=== PATIENT | male | born 1930 | race Caucasian/White ===

== ENCOUNTER → 2016-11-14 | Outpatient (REF) | payer MEDICARE | LOC: M LAB REF 16:23 | PROVIDERS: ATTEND Surgery | DX: J20.9 Acute bronchitis, unspecified (principal) ==

== ENCOUNTER 2017-01-28 10:13 | Emergency (ER) | payer MEDICARE ==
[~2017-01-28] VITALS: Ht 177.8 cm; Wt 79.5 kg
[2017-01-28] MEDS ORDERED: ZOCO80TA PO (10:27)
[2017-01-28] MEDS ORDERED: ASPI81TA85 PO (10:27)
[2017-01-28 11:50] LABS: MEAN CORPUSCULAR HEMOGLOBIN 31.1 pg (27.0-33.0); MEAN CORPUSCULAR HGB CONC 33.8 g/dl (32.0-36.5); MEAN CORPUSCULAR VOLUME 91.8 fl (80.0-96.0); RED CELL DISTRIBUTION WIDTH 13.5 % (11.5-14.5); WHITE BLOOD COUNT 16.2 K/mm3 (4.0-10.0)
[2017-01-28 11:58] LABS: INR 0.94
[2017-01-28 12:09] LABS: ANION GAP 6 MEQ/L (8-16); BLOOD UREA NITROGEN 14 MG/DL (7-18); CALCIUM LEVEL 9.3 MG/DL (8.8-10.2); CARBON DIOXIDE LEVEL 28 MEQ/L (21-32); CHLORIDE LEVEL 103 MEQ/L (98-107); CREATININE FOR GFR 1.06 MG/DL (0.70-1.30); GLOMERULAR FILTRATION RATE > 60.0 (>35); GLUCOSE, FASTING 98 MG/DL (83-110); SODIUM LEVEL 137 MEQ/L (136-145)
[2017-01-28] MEDS ORDERED: CIPR-249 PO (13:59)
[2017-01-28] MEDS ORDERED: CIPROFLOXACIN 500 MG TAB PO ONE (14:00)
[2017-01-28 14:05] VITALS: BP 134/71
[2017-01-28 16:54] LABS: BACTERIA, URINE NONE SEEN; HYALINE CAST, URINE NONE SEEN /lpf (0-1); MICROSCOPIC EXAM PERFORMED; MICROSCOPIC INDICATED? MAN YES (NO); RBC, URINE TNTC /hpf (0-3); SQUAMOUS EPITHELIAL CELL URINE NONE SEEN /hpf (SMALL AMT); WBC, URINE TNTC /hpf (0-3)
== END 2017-01-28 14:26 | disposition home or self-care (01) ==
LOC: M ED 10:13
DX: N39.0 Urinary tract infection, site not specified (principal); R31.9 Hematuria, unspecified; I10 Essential (primary) hypertension; E78.5 Hyperlipidemia, unspecified; Z79.899 Other long term (current) drug therapy; Z79.82 Long term (current) use of aspirin; Z87.891 Personal history of nicotine dependence

== ENCOUNTER → 2017-01-28 | Outpatient (REF) | payer MEDICARE ==
[~2017-01-28] MED LIST: ASPI81TA85 PO; CIPR-249 PO; ZOCO80TA PO
[2017-01-28 15:45] LABS: MICROSCOPIC INDICATED? MAN YES (NO)
[2017-01-28 16:02] LABS: BACTERIA, URINE SMALL AMOUNT; HYALINE CAST, URINE NONE SEEN /lpf (0-1); MICROSCOPIC EXAM PERFORMED; SQUAMOUS EPITHELIAL CELL URINE SMALL AMOUNT /hpf (SMALL AMT)
== END ==
LOC: M SMT 09:42
PROVIDERS: ATTEND Specialist
DX: R31.0 Gross hematuria (principal)

== ENCOUNTER 2019-11-22 08:45 | Inpatient (IN) | payer MEDICARE ==
[~2019-11-22] VITALS: Ht 177.8 cm; Wt 88.2 kg
[2019-11-22] VITALS (12 sets, daily range): BP systolic 75–140; BP diastolic 41–86
[2019-11-22] MEDS ORDERED: OMEG12003 PO (08:59)
[2019-11-22] MEDS ORDERED: ATOR40TA75 PO (08:59)
[2019-11-22] MEDS ORDERED: LISI-538 PO (08:59)
[2019-11-22] MEDS ORDERED: ALPR2TAB3 PO (08:59)
[2019-11-22] MEDS ORDERED: CARV6.25 PO (08:59)
[2019-11-22] MEDS ORDERED: prevagen (08:59)
[2019-11-22 09:19] LABS: BASO % 0.2 % (0.0-1.0); EOS % 0.1 % (0.0-3.0); HEMOGLOBIN 11.9 g/dl (13.5-17.5); LYMPH # 1.1 10^3/uL (1.5-5.0); MEAN CORPUSCULAR HEMOGLOBIN 30.4 pg (27.0-33.0); MEAN CORPUSCULAR HGB CONC 33.1 g/dl (32.0-36.5); MEAN CORPUSCULAR VOLUME 91.8 fl (80.0-96.0); MONO # 1.5 10^3/uL (0.0-0.8); MONO % 9.9 % (0.0-5.0); NEUTROPHILS # 12.2 10^3/uL (1.5-8.5); PLATELET COUNT, AUTOMATED 161 10^3/uL (150-450); RED BLOOD COUNT 3.92 10^6/uL (4.30-6.10); WHITE BLOOD COUNT 14.9 10^3/uL (4.0-10.0)
[2019-11-22 09:27] LABS: VENOUS BASE EXCESS -0.6 (-2.0-2.0); VENOUS HCO3 24.5 MEQ/L (23.0-27.0); VENOUS O2 SATURATION 69.7 % (60.0-80.0); VENOUS PARTIAL PRESSURE O2 37.5 mmHg (30.0-50.0); VENOUS PH 7.383 UNITS (7.330-7.430); VENOUS STANDARD HCO3 23.4 MEQ/L; VENOUS TOTAL CO2 25.7 MEQ/L (24.0-28.0)
[2019-11-22 09:54] LABS: ALBUMIN 3.2 GM/DL (3.2-5.2); BILIRUBIN,DIRECT 0.3 MG/DL (0.0-0.2); BILIRUBIN,TOTAL 0.9 MG/DL (0.2-1.0); CK-MB VALUE MASS 1.4 NG/ML (<3.6); THYROID STIMULATING HORMONE 1.27 uIU/ML (0.358-3.740); TOTAL PROTEIN 6.5 GM/DL (6.4-8.2); TROPONIN I 0.09 NG/ML (< 0.10)
--- NOTE | 2019-11-22 09:57 | REP ---
CT BRAIN WITHOUT CONTRAST: HISTORY: Altered mental status. No comparison study. 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 Bone window settings demonstrate an intact bony calvarium. There is some vascular calcification in the distal internal carotid arteries bilaterally and in the distal vertebral arteries. No intraorbital abnormality is seen. Visualized paranasal sinuses are clear. On soft tissue window settings, there is mild generalized volume loss. There are mild atherosclerotic changes in the periventricular white matter bilaterally. There is no evidence of acute infarction or hemorrhage. No mass or extra-axial fluid collection is seen. IMPRESSION: Vascular calcification, generalized volume loss, small vessel changes. No acute intracranial lesion seen. Electronically Signed by Jostin Zamarripa MD 11/22/2019 12:21 P
--- NOTE | 2019-11-22 09:58 | REP ---
PORTABLE CHEST X-RAY: Sitting AP view. HISTORY: Altered mental status. No comparison study. FINDINGS: The lungs are exposed at a relatively low level of inspiration. No focal infiltrate is apparent. The pleural angles are sharp. Thoracic aorta somewhat tortuous and calcific. Heart is not felt to be enlarged. No acute bony abnormality is seen. IMPRESSION: Relatively low level of inspiration. Otherwise no acute disease. Electronically Signed by Jostin Zamarripa MD 11/22/2019 12:21 P
[2019-11-22] MEDS ORDERED: OMEG10002 PO (10:36)
[2019-11-22] MEDS ORDERED: ALPR0.5T3 PO (10:36)
[2019-11-22] MEDS ORDERED: CYAN100049 PO (10:36)
[2019-11-22] MEDS ORDERED: IBUP200C29 PO (10:36)
[2019-11-22] MEDS ORDERED: NORT50CA PO (10:36)
[2019-11-22] MEDS ORDERED: VITAD1000T PO (10:36)
[2019-11-22] MEDS ORDERED: VITMTA PO (10:36)
[2019-11-22] MEDS ORDERED: VITA50TA7 PO (10:36)
[2019-11-22] MEDS ORDERED: ALPRAZolam 0.5 MG TAB PO PRN (14:15)
[2019-11-22] MEDS ORDERED: NS 1,000 ML IV ONE ×2 (14:30→18:30)
[2019-11-22] MEDS ORDERED: ACETAMINOPHEN 650 MG SUPP PR ONE (14:30)
[2019-11-22] MEDS ORDERED: ASPIRIN 325 MG TAB PO ONE (14:30)
[2019-11-22] MEDS ORDERED: NS 1,000 ML IV SCH (14:30)
[2019-11-22] MEDS ORDERED: NITROGLYCERIN 0.3 MG SUBL TAB SL PRN (14:30)
[2019-11-22] MEDS ORDERED: ACETAMINOPHEN 650 MG SUPP As Ordered ONE (14:32)
[2019-11-22] MEDS ORDERED: cefTRIAXone SOD 1 GM in D5W MINI-BAG PLUS 50 ML IV SCH (15:00)
[2019-11-22] MEDS ORDERED: ONDANSETRON 4MG/2ML VIAL IV PRN ×2 (15:15→19:45)
[2019-11-22] MEDS ORDERED: HEPARIN SOD (PORCINE) 5000UNITS/ML VIAL (J1644 PER 1000UNITS) IV STA ×2 (15:17→16:09)
[2019-11-22] MEDS ORDERED: HEPARIN DRIP 25,000 UNITS in IV 1 EA IV SCH ×4 (15:18→16:12)
[2019-11-22 15:19] LABS: HEMATOCRIT 36.2 % (42.0-52.0); HEMOGLOBIN 12.1 g/dl (13.5-17.5); MEAN CORPUSCULAR HEMOGLOBIN 30.3 pg (27.0-33.0); MEAN CORPUSCULAR HGB CONC 33.4 g/dl (32.0-36.5); MEAN CORPUSCULAR VOLUME 90.5 fl (80.0-96.0); PLATELET COUNT, AUTOMATED 159 10^3/uL (150-450); WHITE BLOOD COUNT 7.1 10^3/uL (4.0-10.0)
[2019-11-22] MEDS ORDERED: HEPARIN SOD (PORCINE) 5000UNITS/ML VIAL (J1644 PER 1000UNITS) IV PRN ×3 (15:30→16:15)
[2019-11-22] MEDS ORDERED: ACETAMINOPHEN *IV* 1,000 MG in IV 1 EA IV ONE (15:30)
[2019-11-22 15:32] LABS: FIBRINOGEN 667 MG/DL (221-452)
--- NOTE | 2019-11-22 15:37 | REP ---
PORTABLE CHEST X-RAY: Single view. HISTORY: Short of breath. COMPARISON CHEST X-RAY: November 22, 2019. FINDINGS: Sitting AP chest shows mild elevation of the right hemidiaphragm unchanged. Pulmonary vasculature is somewhat cephalized. Heart is not felt to be enlarged. Pleural angles are sharp. No infiltrate is seen. IMPRESSION: No infiltrate noted. Somewhat elevated right hemidiaphragm. Vascular cephalization. Electronically Signed by Jostin Zamarripa MD 11/23/2019 08:10 A
[2019-11-22 15:46] LABS: LYMPHOCYTES 11 % (16-44); NEUTROPHILS 75 % (28-66)
[2019-11-22] MEDS: PIPERACILLIN/TAZOBACTAM SOD 3.375 GM in D5W MINI-BAG PLUS 50 ML IV SCH ×2 (15:46→21:28)
[2019-11-22 15:47] LABS: CRENATED RBC 1+
[2019-11-22 15:48] LABS: PLATELET CLUMPS SMALL AMT; PLATELET ESTIMATE NORMAL (NORMAL)
[2019-11-22] MEDS: LEVALBUTEROL 1.25 MG/0.5 ML CONCENTRATE NEB INH SCH ×2 (15:50→17:44)
[2019-11-22 15:53] LABS: ALBUMIN 3.1 GM/DL (3.2-5.2); ALT/SGPT 1120 U/L (12-78); BILIRUBIN,TOTAL 2.3 MG/DL (0.2-1.0); BLOOD UREA NITROGEN 22 MG/DL (7-18); CALCIUM LEVEL 8.6 MG/DL (8.8-10.2); CARBON DIOXIDE LEVEL 20 MEQ/L (21-32); CHLORIDE LEVEL 106 MEQ/L (98-107); CK-MB VALUE MASS 2.5 NG/ML (<3.6); CPK CREATINE PHOSPHOKINASE 208 U/L (39-308); CREATININE FOR GFR 0.89 MG/DL (0.70-1.30); GLOMERULAR FILTRATION RATE > 60.0 (>35); GLUCOSE, FASTING 115 MG/DL (70-100); MAGNESIUM LEVEL 1.8 MG/DL (1.8-2.4); PHOSPHORUS LEVEL 2.8 MG/DL (2.5-4.9); POTASSIUM SERUM 4.1 MEQ/L (3.5-5.1); SODIUM LEVEL 137 MEQ/L (136-145); TOTAL PROTEIN 6.6 GM/DL (6.4-8.2); TROPONIN I 0.09 NG/ML (< 0.10)
[2019-11-22 15:57] LABS: D-DIMER QUANT > 4000 ng/ml (<500); PARTIAL THROMBOPLASTIN TIME 27.7 SECONDS (25.0-38.4)
[2019-11-22 15:59] LABS: FERRITIN 1430 NG/ML (26-388); LDH LACTATE DEHYDROGENASE 1452 U/L (87-241)
--- NOTE | 2019-11-22 16:33 | HPEPDOC ---
General Date of Admission Nov 22, 2019 at 12:10 Date of Service: Nov 22, 2019 Chief Complaint The patient is a 89-year-old male admitted with a reason for visit of Weakness. Source: Patient, Old records Exam Limitations: Clinical conditions Timing/Duration: 24 hours Severity: Severe Associated Symptoms: Weakness History of Present Illness Pt is a 89 yo male with PMH of HTN and hyperlipidemia presented to [facility] ER on 11/22/2019 in the morning due to generalized weakness and lightheadedness without vertigo which started since he woke up from sleep 11/22/2019. He reported that he also had an episode of sharp precordial chest pain lasting about 6 min in the morning which started when he is sitting still without radiation, aggravating factor, or alleviating factor. He reported he fell at home with on the right side and hit right occipital lobe region because of the weakness. He also said he started feeling very cold which started since he arrived to the hospital. He reported dyspnea without orthopnea but could not specify the onset of time. At the time of the admission, he denied any chest pain, palpitation, shoulder pain, nausea, vomiting, abdominal pain, constipation, diarrhea, blood in stool, or dysuria. Initially denied having fever but later reported sometimes "he feels hot" Pt had a changed of mental status started a few minutes after admission and a code purple was code. It was noted that pt's axillary temp was 103.6F compared to 98F forehead temp since he has been in the hospital. Pt was transferred to PCU. His EKG showed ST elevation in V2 and V3; heparin bolus with drip was started and cardiology was consulted. Home Medications Scheduled Atorvastatin Calcium (Atorvastatin Calcium) 40 Mg Tablet, 40 MG PO QHS, (Reported) Carvedilol (Carvedilol) 6.25 Mg Tablet, 6.25 MG PO BID, (Reported) Cholecalciferol (Vitamin D3) (Vitamin D3) 1,000 Unit Tablet, 1,000 UNITS PO DAILY, (Reported) Cyanocobalamin (Vitamin B-12) (Vitamin B-12) 1,000 Mcg Tablet, 1,000 MCG PO DAILY, (Reported) Lisinopril (Lisinopril) 20 Mg Tablet, 20 MG PO DAILY, (Reported) Multivitamins (Thera M Plus Tablet) 1 Each Tablet, 1 TAB PO DAILY, (Reported) Nortriptyline HCl (Nortriptyline HCl) 50 Mg Capsule, 50 MG PO QHS, (Reported) Milan-3/Dha/Epa/Fish Oil (Fish Oil 1,000 mg Softgel) 1 Each Capsule, 1,000 MG PO DAILY, (Reported) Pyridoxine HCl (Vitamin B6) (Vitamin B-6) 50 Mg Tablet, 50 MG PO DAILY, (Reported) Scheduled PRN Alprazolam (Alprazolam) 0.5 Mg Tablet, 0.5 MG PO BID PRN for ANXIETY, (Reported) Ibuprofen (Ibuprofen) 200 Mg Capsule, 200 MG PO QID PRN for PAIN, (Reported) Allergies Coded Allergies: No Known Allergies (Unverified , 01/28/17) Past Medical History Medical History HTN Hyperlipidemia Anxiety Reported prior urgent heart cath reported per pt; limited info was able to be obtained Surgical History Tur 09/28/2014 Tonsillectomy Family History Significant Family History: Noncontributory Pt denies significant family hx Social History * Smoker: Denies Alcohol: Denies Drugs: denies lives at home with girlfriend Laura, visits from [place]. Unable to obtain rest of social hx as pt was very anxious and not answering questions A-FIB/CHADSVASC A-FIB History Current/History of A-Fib/PAF?: No Review of Systems Constitutional: Reports: Chills, Fever, Weakness Eyes: Denies: Vision change ENT: Reports: Other Symptoms (no hearing changes, tinnitus); Denies: Dysphagia Pulmonary: Reports: Dyspnea; Denies: Cough Cardiovascular: Denies: Chest Pain, Palpitations, Orthopnea Gastrointestinal: Denies: Abdominal Pain, Diarrhea, Constipation, Hematochezia Genitourinary: Denies: Dysuria, Retention Psych: Reports: Anxiety Physical Examination General Exam: Positive: Alert, Cooperative, Mild Distress, Moderate Distress, Other (generalized tremors/shaking) Eye Exam: Positive: Conjunctiva & lids normal; Negative: Sclera icteric ENT Exam: Positive: Atraumatic, Mucous membr. moist/pink Neck Exam: Positive: Supple Chest Exam: Positive: Rales (mild b/l), Diminished, Other (tachypneic, accessory muscle use noted); Negative: Clear to auscultation, Normal air movement Heart Exam: Positive: Tachycardic (mildly), Regular Rhythm, Normal S1, Normal S2; Negative: Murmurs Abdomen Exam: Positive: Normal bowel sounds, Soft; Negative: Tenderness Extremity Exam: Positive: Cyanosis (in b/l fingers), Edema (1+ in b/l LE), Normal pulses, Other; Negative: Tenderness Skin Exam: Positive: Other skin issue (coldness in b/l hands and feet); Negative: Nl turgor and temperature Neuro Exam: Positive: Strength at 5/5 X4 ext, Normal Tone, Sensation Intact, Cranial Nerves 3-12 NL, Other (midly incoherent speech); Negative: Normal Speech Psych Exam: Positive: Anxiety (marked anxiety); Negative: Mood NL, Memory Intact Vital Signs Vital Signs Date Time Temp Pulse Resp B/P (MAP) Pulse Ox O2 Delivery O2 Flow Rate FiO2 11/22/19 16:00 103.5 137 22 116/60 (78) 11/22/19 14:30 2.0 11/22/19 14:30 95 Nasal Cannula Laboratory Data Labs 24H Laboratory Tests 2 11/22/19 08:58: Bedside Glucose (Misc Panel) 98 11/22/19 09:07: Immature Granulocyte % (Auto) 0.8, Neutrophils (%) (Auto) 82.0H, Lymphocytes (%) (Auto) 7.0L, Monocytes (%) (Auto) 9.9H, Eosinophils (%) (Auto) 0.1, Basophils (%) (Auto) 0.2, Neutrophils # (Auto) 12.2H, Lymphocytes # (Auto) 1.1L, Monocytes # (Auto) 1.5H, Eosinophils # (Auto) 0.0, Basophils # (Auto) 0.0, Nucleated Red Blood Cells % (auto) 0.0, Osmolality 284, Total Bilirubin 0.9, Direct Bilirubin 0.3H, Aspartate Amino Transf (AST/SGOT) 16, Alanine Aminotransferase (ALT/SGPT) 24, Alkaline Phosphatase 74, Total Creatine Kinase 70, Creatine Kinase MB 1.4, Creatine Kinase MB Relative Index 2.00, Troponin I 0.09, Total Protein 6.5, Albumin 3.2, Albumin/Globulin Ratio 1.0, Thyroid Stimulating Hormone (TSH) 1.270 11/22/19 09:08: POC Glucose (Misc Panel) 94, POC Sodium (Misc Panel) 138, POC Potassium (Misc Panel) 3.5, POC Chloride (Misc Panel) 102, POC Total CO2 (Misc Panel) 22.0L, POC Blood Urea Nitrogen (Misc Panel 21, POC Ionized Calcium (Misc Panel) 4.6, POC Creatinine (Misc Panel) 1.0, POC Hematocrit (Misc Panel) 38.0 11/22/19 09:15: Blood Gas Bicarbonate Standard 23.4, Venous Blood pH 7.383, Venous Blood Partial Pressure CO2 42.0, Venous Blood Partial Pressure O2 37.5, Venous Blood Total Carbon Dioxide 25.7, Venous Blood HCO3 24.5, Venous Blood Oxygen Saturation 69.7, Venous Blood Base Excess -0.6, Lactic Acid Level 1.7 11/22/19 09:52: Urine Color YELLOW, Urine Appearance CLEAR, Urine pH 6.0, Urine Specific [place] 1.020, Urine Protein NEGATIVE, Urine Glucose (UA) NEGATIVE, Urine Ketones NEGATIVE, Urine Blood NEGATIVE, Urine Nitrite NEGATIVE, Urine Bilirubin NEGATIVE, Urine Urobilinogen 4.0H, Urine Leukocyte Esterase NEGATIVE, Urine WBC (Auto) 2, Urine RBC (Auto) 3, Urine Hyaline Casts (Auto) 0, Urine Bacteria (Au to) NEGATIVE, Urine Squamous Epithelial Cells 0, Urine Mucus (Auto) SMALL, Urine Sperm (Auto) 11/22/19 15:04: Activated Partial Thromboplast Time 27.7, Fibrinogen 667H, D-Dimer, Quantitative > 4000H 11/22/19 15:05: Neutrophils (%) (Auto) , Nucleated Red Blood Cells % (auto) 0.3H, Neutrophils 75H, Band Neutrophils 14H, Lymphocytes (Manual) 11L, Crenated Cell 1+, Acanthocytes 1+, Platelet Estimate NORMAL, Clumped Platelets SMALL AMT, Anion Gap 11, Glomerular Filtration Rate > 60.0, Lactic Acid Level 2.2*H, Calcium Level 8.6L, Phosphorus Level 2.8, Magnesium Level 1.8, Ferritin 1430H, Total Bilirubin 2.3#H, Aspartate Amino Transf (AST/SGOT) 1375H, Alanine Aminotransferase (ALT/SGPT) 1120H, Alkaline Phosphatase 482H, Lactate Dehydrogenase 1452H, Total Creatine Kinase 208#, Creatine Kinase MB 2.5, Creatine Kinase MB Relative Index 1.20, Troponin I 0.09, Total Protein 6.6, Albumin 3.1L, Albumin/Globulin Ratio 0.9 CBC/BMP Laboratory Tests 11/22/19 09:07 11/22/19 15:05 Microbiology Microbiology 11/22/19 Blood Culture, Received Pending 11/22/19 Blood Culture, Received Pending Assessment/Plan Pt is a 89 yo with PMH of HTN and hyperlipidemia with reported urgent heart cath without specified CAD reported to [facility] on 11/22/2019 due to generalized weakness that started in the morning and a fall d/t the weakness. Pt was noted to have LBBB in ER. He was subsequently admitted to the hospital for sepsis and LBBB with trop follow up. changed of mental status started a few minutes after admission and a code purple was called. It was noted that pt's axillary temp was 103.6F compared to 98F forehead temp since he has been in the hospital. Pt was noted to be quickly deterioted and became disoriented. He was also having vomiting with urinary incontinence. His EKG showed ST elevation in V2 and V3; heparin bolus with drip was started and cardiology was consulted.Pt was transferred to PCU. 1. Sepsis. Tachycardic, fever, leukocytosis, tachypnea, and new-onset AMS. BP roughly stable. Pt reported dyspnea but no cough and CXR neg. Denies dysuria or abd pain. Blood cxX2 and urine cx pending. Lactic acid also elevated. Pt was started on empiric zosyn and Vanco. Start IV NS. Neuro checks. Ibuprofen PRN with Zofran PRN Trend lactic acid level. Covid 19 ordered. 2. Atypical chest pain with STEMI vs new onset LBBB. New-onset atypical chest pain started while resting lasting 6 min which had resolved. Pt was noted to have LBBB on initial ER EKG. 324mg Aspirin and home 40mg statin was started. D/t acute change of mental status, a code purple was called and a repeat EKG showed ST elevation in V2 and V3. Pt was started on heparin bolus and drip. Upon re-evaluation, pt cont to deny any chest pain, chest pressure, or palpitation. Sublingual nitro PRN. Tele. Follow up cardiac marker. Cardiology team was consulted, and we appreciate cardiology team's assistance.Pt will be in ICU for close monitoring. 3. Transaminitis 2/2 shock liver from STEMI vs acetaminophen use, new. Sudden increase in LFT after onset of AMS. Pt is on heparin drip for STEMI with the he lp from cardiology. Atorvastatin was initially started for LBBB, but will hold d/t transaminitis. Urine drug screen ordered. Although unlikely will order hepatitis profile. Liver US ordered. Trend CMP 4. Encephalopathy d/t sepsis vs TIA from insufficient blood supply 2/2 STEMI, resolved. Brief episodes of AMS with urinary incontinence. Ct head ordered in ER showed no acute abnormality. MRI brain without contrast ordered. Neuro checks. Pt will be NPO except for meds; bedside swallow eval. Aspiration precaution. 5. Concussion 2/2 fall d/t generalized weakness. CT head showed no acute abnormality. Neuro checks. Cortisol level ordered for generalized weakness. PT/OT. Fall precaution. 6. Anxiety. Hx of anxiety has been on low dose alprazolam for 30 years. Will hold alprazolam and notryptyline at this time. Seizure precaution; may restart home alprazolam. 7. HTN. Hold home lisinopril for now d/t precaution for shock kidney. BP currently stable. Cont vital signs. 8. Dyspnea likely 2/2 sepsis vs STEMI. Without evidence of hypoxia or hypoxemia. Cont empiric abx for sepsis and heparin drip for STEMI. CTA ordered to r/o PE as pt also has elevated d-dimer. Repeat ABG. DVT prophylaxis: on Heparin GI prophylaxis: Consider starting protonix IV 40mg BID Pt is full code. Lives with girlfriend Laura but she reported no health care proxy form was filled out. Two sons Ephraim [phone] and Zeb [phone] Plan / VTE VTE Prophylaxis Ordered?: Yes Plan IVF: Initiate Diet: Make NPO Activity: Bedrest Therapy: PT, OT Diagnostics: Check Labs, Repeat Labs in AM, CT, Ultrasound, TTE GME ATTESTATION GME ATTESTATION My faculty preceptor for this patient encounter was physically present during the encounter and was fully available. All aspects of the patient interview, examination, medical decision making process, and medical care plan development were reviewed and approved by the faculty preceptor. The faculty preceptor is aware and concurs with the plan as stated in the body of this note and will attest to such by his/her cosignature. GME ATTESTATION GME ATTESTATION My faculty preceptor for this patient encounter was physically present during the encounter and was fully available. All aspects of the patient interview, examination, medical decision making process, and medical care plan development were reviewed and approved by the faculty preceptor. The faculty preceptor is aware and concurs with the plan as stated in the body of this note and will at test to such by his/her cosignature. ATTENDING NOTE Pt seen and examined by me. Agree with the above assessment and plan. JACY COHN DO Nov 22, 2019 16:33 KARINA MEJIA MD Nov 26, 2019 15:17
[2019-11-22 17:25] LABS: NT-PRO BNP 912 PG/ML (<450)
--- NOTE | 2019-11-22 17:38 | CR ---
DATE OF CONSULTATION: 11/22/2019 HISTORY OF PRESENT ILLNESS: Mr. Erik Anglin is an 89-year-old male with a past medical history of coronary artery disease, hypercholesterolemia, hypertension, anxiety, who presented to the emergency department (ED) this morning with complaint of several days of weakness. Per the patient, he reports that for the past couple of days, he has felt profoundly short of breath and very weak to the point where he cannot get out of bed. This morning, he called the ambulance to have him brought into the ED for evaluation. He denies any recent illnesses, any sick contacts. He lives with his significant other, a girlfriend, for 10 years and otherwise has not had any medical issues recently. He is a resident of [place], [place] most of the year and is spending the tompkins in [place]. Cardiology service was consulted this afternoon around 4 o'clock as the patient was found to have EKG changes and was tachycardic. He was also complaining of worsening shortness of breath. There was also report that he had altered mental status; this was not evident on my exam. While the patient was very sleepy during my interview, he was fully oriented to person, place, and time. In regards to his coronary artery disease, he reports that in 1979, he had an angiogram done of his coronary vessels and was found to have narrowing of one of the vessels. He did not have any stents placed, but he has been on a statin since that time. He is followed by a director on air in [place], [place] named Dr. Maite Henry whom he has seen yearly since the time of is angiogram. REVIEW OF SYSTEMS: He denies any recent fevers, chills. Gastrointestinal: He denies any recent nausea, vomiting or diarrhea. Cardiovascular: He denies any recent palpitations, chest pain or pressure. Respiratory: He does report some worsening shortness of breath. No cough. No difficulty breathing. Genitourinary: He does not report any frequent urination or dysuria-like symptoms. Musculoskeletal: He denies any joint pains or pain in any of his extremities. No weakness. No loss of sensation. Skin: He denies any new rashes, lumps or bumps. PAST MEDICAL HISTORY: Significant for coronary artery disease with one vessel narrowing in 1984. No stent. He has a history of frequent urinary tract infections (UTIs) for which he saw urology in 2014. He has a history of anxiety, hypercholesterolemia, and hypertension. SURGICAL HISTORY: He had a transurethral resection of the prostate (TURP) done in September 2014. He had a tonsillectomy, and he had an angiogram done in 1984 of the coronary vessels. FAMILY HISTORY: Significant for father who is , unknown cause. Mother is at the age of 4646 years old with breast cancer. SOCIAL HISTORY: He is a former smoker, quit about 40 years ago. Used to smoke about a pack a day. He denies any alcohol or any other drug use. HOME MEDICATIONS: - Xanax 0.5 mg by mouth twice a day as needed for anxiety - atorvastatin 40 mg by mouth nightly - carvedilol 6.25 mg twice a day - vitamin D3 1000 units by mouth daily - vitamin B12 1000 mcg by mouth daily - ibuprofen 200 mg by mouth four times a day as needed for pain - lisinopril 20 mg daily - multivitamin - nortriptyline 50 mg by mouth nightly - fish oil 1000 mg by mouth daily - vitamin B6 50 mg by mouth daily ALLERGIES: The patient has no known allergies. PHYSICAL EXAMINATION: Vital Signs: Temperature rectally is 103.5, pulse is 137, respiratory rate is 22, blood pressure is 116/60, pulse oximetry is 95% on two liters nasal cannula. Generally, he is lying in bed. He is very somnolent but easily arousable. He is calm, cooperative, in no acute distress, appearing stated age. HEENT Exam: His extraocular movements are intact. His pupils are equally round and reactive to light. His mucous membranes are moist. Neck is supple with no lymphadenopathy and no thyromegaly. Chest: Clear to auscultation bilaterally with no adventitious breath sounds appreciated. Cardiovascular: He is tachycardic but no murmurs, rubs or gallops are appreciated. There are no carotid bruits. No jugular venous distention (JVD) is appreciated. Abdomen: Soft and nontender to palpation in all four quadrants. Positive bowel sounds. No masses or organomegaly. He does have a small umbilical hernia appreciated about 1-2 cm in size. Lower Extremities: No clubbing, cyanosis or edema. He moves all his extremities well. Neurologic Exam: Cranial nerves were difficult to perform this exam due to the patient's somnolence. Lymphatics: He has no enlarged lymph nodes in the neck or groin. Skin: Warm, well perfused, intact. No obvious rashes. Psychiatric: Normal mood, normal affect. He is awake, alert and oriented times three. LABORATORY: On admission, the patient's white blood cell count was found to be 14.9, repeat was 7.1. His hemoglobin went from 11.9 to 12.1. His platelet count was normal at 159 at this time. Chemistries: His sodium is 137, potassium 4.1, chloride is 106, BUN is 22 and creatinine is 0.89. His lactic acid was elevated at 2.2, calcium is 8.6. Total bilirubin is 2.3. Originally on admission, his liver enzymes were all within normal limits; now, his AST is 1375, his ALT is 1120, alkaline phosphatase is 482, his LDH is elevated at 1452, his ferritin is elevated at 1430. His troponins originally were normal with a troponin of 0.09, now total CK is 208 and a troponin of 0.09. Albumin is 6.6 and TSH is 1.270. He underwent a VBG, which was all normal. Urinalysis was essentially normal. Blood cultures times two are pending, as well as a rapid COVID test is pending. The patient underwent a head CT on admission for altered mental status, which was reviewed by myself and showed vascular calcification, generalized volume loss, small vessel changes and no acute intracranial lesions appreciated. He did have a chest x-ray on admission, which was relatively normal. A repeat chest x-ray was done, showed no infiltrates, a somewhat elevated right hemidiaphragm and vascular cephalization. No other imaging was done. ASSESSMENT: This is an 89-year-old man with a history of coronary artery disease who presented with several days of weakness, found to be profoundly short of breath, now with tachycardia, he is febrile and he has transaminitis, likely secondary to infection of yet unknown cause. PLAN: At this time, the patient did have a repeat EKG that showed a left bundle branch block, which was likely secondary to his tachycardia. The tachycardia is most likely secondary to an infection of unknown cause. Given that his liver enzymes are acutely elevated, would suggest obtaining further workup for infection, including blood cultures. I have ordered also a CRP as well. I see that the primary team has broadened his antibiotic coverage to vancomycin and Zosyn, which I feel is acceptable right now. In addition, I have ordered a STAT echocardiogram to assess his cardiac function. I have also put in a request to have his records sent to us from his director on air, Dr. Henry, in [place], [place]. Hopefully this will shed some light on his cardiac history. We agree with the current heparin drip, given that he does have a history of coronary artery disease as empiric treatment. Would also suggest if the patient is stable to get a CT angiogram to rule out pulmonary embolism, as he has shortness of breath, oxygen requirement, tachycardia, and elevated D-dimer. Will await the results of repeat troponins at 8:[address] [facility] as well. I have spoken at length with the patient regarding possible need for transfer down to [place] for a cath, and he is agreeable to this plan. At this time, he is FULL CODE. In regards to his tachycardia, it is acceptable to have him on an oral beta ezequiel, which is already ordered - Coreg 6.25 mg twice a day, but at this point, it would be more prudent to determine the etiology of this possible infection first before slowing down his heart rate. We will continue to monitor this patient. Feel free to call us if you have any questions. Addendum MD Jogre: I have seen and examined the patient. In principle agree with . Elderly man with remote h/o coronary intervention presents with sepsis, possibly biliary. Will obtain ECHO to evaluate LV systolic function and PAP but so far no evidence for an SD. He has no chest pain, enzymes are negative and LBBB is probably related to tachycardia. Will follow patient with you. LENNOX
[2019-11-22 17:39] LABS: TRIGLYCERIDES LEVEL 88 MG/DL (<150)
--- NOTE | 2019-11-22 17:39 | ECGEPIP ---
[facility] Test Date: 2019-11-22 Pat Name: MILI TURNER Department: Room: [place] [address] Gender: Male Email Production Specialist: BARBARA : [id number] Requested By: ANTHONY KINSEY Order Number: [id number] Reading MD: Ethan Flores Measurements Intervals [place] Rate: 116 P: 54 IN: 175 QRS: -4 QRSD: 145 T: 137 QT: 346 QTc: 481 Interpretive Statements Sinus tachycardia Left bundle branch block Compared to prior tracing of 11/22/2019, heart rate is faster Electronically Signed on 11-22-2019 17:39:16 EDT by Ethan Flores
[2019-11-22 17:41] LABS: ABG BASE EXCESS -0.4 (-2.0-2.0); ABG HCO3 22.5 MEQ/L (22.0-26.0); ABG O2 SATURATION 94.2 % (95.0-99.0); ABG PARTIAL PRESSURE CO2 31.4 mmHg (35.0-45.0); ABG PARTIAL PRESSURE O2 65.8 mmHg (75.0-100.0); ABG STANDARD HCO3 24.1 MEQ/L (22.0-26.0); ABG TOTAL CO2 23.5 MEQ/L (23.0-31.0); ABG pH (ARTERIAL) 7.473 UNITS (7.350-7.450)
[2019-11-22] MEDS: VANCOMYCIN HCL 750 MG, VIAL MATE ADAPTER 1 EACH in D5W 250 ML IV SCH (17:41)
[2019-11-22] MEDS ORDERED: VANCOMYCIN HCL 750 MG, VIAL MATE ADAPTER 1 EACH in D5W 250 ML IV ONE (18:00)
[2019-11-22 18:25] LABS: ACETAMINOPHEN LEVEL < 2.0 UG/ML (10.0-30.0)
[2019-11-22 18:44] LABS: CORTISOL BASELINE 47.7 UG/DL (4.3-22.4)
[2019-11-22] MEDS ORDERED: SODIUM CHLORIDE 0.9% 1000ML IV ONE (19:30)
--- NOTE | 2019-11-22 19:36 | ECHO ---
DATE OF PROCEDURE: 11/22/2019 REFERRING PHYSICIAN: Dr. Lexy Giles INDICATION: Abnormal EKG, shortness of breath. Height 178 cm, weight 85 kg. DIMENSIONS: IVS: 1.2 LV: 4.6 LVPW: 1.2 LA: 3.5 Aorta: 3.3 IVC: 1.3 Mitral E wave velocity: 48 A wave: 85 E prime septal: 5.2 E prime lateral: 6.3 FINDINGS: The study is of fair technical quality. The patient is in sinus rhythm with ventricular rate in 90s. 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 Left ventricle is of normal size. Mild left ventricular hypertrophy is present. There is paradoxical septal motion, I suspect due to underlying conductive system disease. Overall left ventricular ejection fraction (LVEF) is probably mildly reduced. I do not appreciate any distinct segmental wall motion abnormalities, even though on some views the inferobasal segments appear more hypokinetic. But overall LVEF is going to be near normal. The right ventricle does not appear grossly enlarged and is normally contractile. Both atria appear normal. Aortic valve is sclerotic but has three cusps and preserved mobility. Mitral valve exhibits mild degenerative abnormalities consistent with patient's age. Mobility of leaflets is preserved. Tricuspid and pulmonic valves appear normal. No pericardial effusion is noted. Inferior vena cava is relatively small size and appropriately collapses with inspiration indicative of normal or potentially even low central venous pressure. Aortic root is normal. Aortic arch and abdominal aorta were not well visualized. Doppler interrogation reveals no aortic stenosis and mild insufficiency. There is also mild mitral and [id number] tricuspid insufficiency. Calculated pulmonary artery pressure is in low 30s corresponding to upper limits of normal values or mild pulmonary hypertension. Pulmonic valve exhibits mild insufficiency. Mitral inflow pattern and tissue Doppler imaging of mitral annulus revealed grade 1 diastolic dysfunction. CONCLUSIONS: 1. Study is of fair technical quality, the patient is in sinus rhythm with underlying conductive system disease. 2. Normal left ventricular (LV) size with mild left ventricular hypertrophy (LVH), paradoxical septal motion and overall mildly reduced LVEF. Estimated ejection fraction (EF) 50-55%. No definite segmental wall motion abnormalities. 3. No hemodynamically significant valvular disease. 4. Normal or low central venous pressure and probably normal or mildly elevated pulmonary artery pressure. COMMENT: Subacute bacterial endocarditis (SBE) prophylaxis is not recommended.
[2019-11-22] MEDS ORDERED: ISOVUE-370 76% 100ML VIAL As Ordered ONE (19:51)
--- NOTE | 2019-11-22 20:23 | CCN ---
DATE: 11/22/2019 Critical care time was 1 hour and 22 minutes; this excludes all procedures. HISTORY OF PRESENT ILLNESS: I was called urgently by the resident, Dr. Richter, for a patient with hypotension, concern for possible cardiogenic versus septic shock. Mr. Anglin is an 89-year-old male, presented to the emergency room with generalized weakness. No exact cause could be found, although he had some leukocytosis and bandemia. During the day, actually a code purple was called for concerns for possible sepsis and antibiotics were not initiated until that time. Broad-spectrum antibiotics initiated. The patient had not received significant amounts of fluid as of yet. On my arrival, I have ordered one liter of normal saline upon entering the room. It did appear that there was pulse pressure variation, and under ultrasound, the right internal jugular (IJ) appeared to have a central venous pressure (CVP) of less than 5. The patient himself states he has no symptoms other than feeling scared. I assisted with placing a central line with the resident, Dr. Richter, and was there for the entire procedure and assisted with critical portions of the procedure. With IV fluid, blood pressure improved. The patient is in sinus tachycardia. Cardiovascular lynch had ST abnormalities on EKG. Cardiology already consulted stating that this was likely decreased perfusion from sepsis, which I concur. PHYSICAL EXAM: Blood pressure currently 116/60 with a mean arterial pressure of 70, pulse was 137, respiratory rate of 22, temperature is elevated at 103.5. Oxygen saturation is 95% on 2 liters. General: The patient is awake, alert, conversant. HEENT: Sclerae clear and anicteric. Pupils equal, react to light. Mucous membranes moist without lesions. Oropharynx without erythema or exudate. Tongue is midline. Neck is supple. No tracheal deviation or mass. No elevated jugular venous pressure (JVP). Pulmonary: Clear to auscultation without rales, rhonchi or wheezes. No dullness to percussion. No accessory muscle use. Cardiac: Distant S1, S2, tachycardiac in nature without audible murmur, rub or gallop. Extremities: No cyanosis, clubbing or edema. No mottling. Abdomen: Soft, nontender, nondistended. No hepatosplenomegaly, mass or hernia. Extremities: No cyanosis, clubbing or edema. Neurologic: No unilateral weakness. No myoclonus. No evidence of recent trauma. Normal muscle tone. Skin: Hu[place] without rash, jaundice or bruising. Laboratory evaluation shows a hemoglobin of 12.1, hematocrit of 36.2, platelet count of 159. White blood cell count is elevated at 14.9 on admission with a 14% bandemia. Arterial blood gas shows a pH of 7.43, pCO2 of 31, pAO2 of 66 on 2 liters. Troponin was 0.09. BNP 912, total protein 3.1, AST is elevated, ALT is elevated, alkaline phosphatase is elevated quite significantly. I do not see where amylase or lipase was checked. Head CT was reportedly unremarkable except for some age related vascular changes. Chest x-ray is with decreased lung expansion. No evidence of mass lesion or infiltrate. No effusion. No vascular congestion. IMPRESSION: Septic shock, hypotension, etiology has not yet been identified. However, amylase and lipase were not ordered on admission to rule out pancreatitis. There is a possibility that this could be ascending cholangitis. Will obtain right upper quadrant ultrasound stat. The patient requires much more fluid. I have ordered two more liters of normal saline. Will check SCV O2 and monitor. I have discontinued his carvedilol due to his hypotension. The patient remains guarded, high risk for intubation. High risk for vasopressor requirement. The patient is FULL CODE at this point in time. I have expressed to the primary team the urgency of the upper quadrant sono for the possibility of ascending cholangitis. If he becomes more hemodynamically stable, abdominal CT may be required. LENNOX
[2019-11-22] MEDS ORDERED: CARVedilol 6.25 MG TAB PO SCH (21:00)
[2019-11-22] MEDS ORDERED: NORTRIPTYLINE 25 MG CAP PO SCH (21:00)
[2019-11-22] MEDS ORDERED: NOREPINEPHRINE BITARTRATE 8 MG in D5W 492 ML IV SCH (21:00)
[2019-11-22] MEDS ORDERED: ATORVASTATIN 20 MG TAB PO SCH (21:00)
[2019-11-22 21:17] LABS: MB/CK RELATIVE INDEX 2.64 (< OR =4)
[2019-11-22 21:18] LABS: TROPONIN I 2.3 NG/ML (< 0.10)
--- NOTE | 2019-11-22 21:25 | CCN ---
DATE: 11/22/2019 This is another 20 minutes of critical care time in addition to the critical care note already dictated. I reassessed the patient after fluid administration after a total of three liters. Heart rate now down to 79 from 137, mean arterial pressure maintaining just above 65 as a mean arterial pressure. Again, I express that I have a high suspicion of gallbladder disease, possibly ascending cholangitis. Amylase and lipase still pending. Abdominal ultrasound despite being ordered stat stated they were not available as they were in labor and delivery. Gastrointestinal (GI) has been consulted, recommending possible drain versus ERCP tomorrow depending on the stability of the patient overnight if there is truly evidence of ascending cholangitis. I have written for Levophed in case mean arterial pressure (MAP) decreases under 65. At this point and time, patient is maintaining well and his oxygen saturation is actually improved. Will continue to monitor for decompensation. GI prophylaxis. I have added Protonix. History of hypertension. All antihypertensives are on hold. Deep venous thrombosis (DVT) prophylaxis. Patient currently heparin drip due to concern for possible acute coronary syndrome. This can likely be converted to deep venous thrombosis (DVT) prophylaxis if the next troponin levels are low. After discussing the case with Dr. Tompkins, it is felt that this was more likely bundle branch block related as far as EKG abnormalities. LENNOX
--- NOTE | 2019-11-22 21:40 | ECGEPIP ---
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
[2019-11-22 22:15] LABS: ALBUMIN 2.4 GM/DL (3.2-5.2); ALT/SGPT 2013 U/L (12-78); BILIRUBIN,DIRECT 1.9 MG/DL (0.0-0.2); BILIRUBIN,TOTAL 2.5 MG/DL (0.2-1.0); BLOOD UREA NITROGEN 24 MG/DL (7-18); CALCIUM LEVEL 7.5 MG/DL (8.8-10.2); CARBON DIOXIDE LEVEL 24 MEQ/L (21-32); CHLORIDE LEVEL 108 MEQ/L (98-107); CREATININE FOR GFR 1.23 MG/DL (0.70-1.30); GLOMERULAR FILTRATION RATE 59.3 (>35); GLUCOSE, FASTING 118 MG/DL (70-100); POTASSIUM SERUM 3.1 MEQ/L (3.5-5.1); SODIUM LEVEL 137 MEQ/L (136-145)
--- NOTE | 2019-11-22 22:28 | REPVR ---
PROCEDURE INFORMATION: Exam: US Abdomen Limited, Right Upper Quadrant Exam date and time: 11/22/2019 9:50 PM Age: 89 years old Clinical indication: Abdominal pain; Acute; Additional info: R/O ascending cholangitis TECHNIQUE: Imaging protocol: Real-time ultrasound of the abdomen with image documentation. Examination was focused on the right upper quadrant. COMPARISON: No relevant prior studies available. FINDINGS: Liver: The echogenicity of the liver is within normal limits. No liver lesion is identified from the images obtained. The contour of the liver is smooth. Gallbladder: Normal. No gallstones, masses, sonographic Bernal's sign, gallbladder wall thickening, or pericholecystic fluid. Common bile duct: No dilation (5-6 mm in diameter). No stones are identified in the imaged portion of the common bile duct. No periportal hypo or hyperechogenicity adjacent to dilated intrahepatic biliary ducts, biliary sludge, or hepatic or cholangitic abscesses are identified to suggest ascending cholangitis. Pancreas: Obscured by gas in the stomach and bowel. Right kidney: The right kidney is normal in appearance and measures 11 cm in length. There is no renal cortical thinning. The renal cortical echogenicity is within normal limits. No renal lesion is seen. There is no hydronephrosis. No obvious stones are seen in the renal collecting system. Intraperitoneal space: No free fluid is seen from the images obtained. IMPRESSION: No sonographic evidence for ascending cholangitis. Electronically signed by: Kalen Forte On 11/22/2019 22:28:19 PM
--- NOTE | 2019-11-22 22:34 | RO ---
DATE OF PROCEDURE: 11/22/2019 PROCEDURE INDICATION: Sepsis with septic shock requiring vasopressor support. PROCEDURE: Internal jugular central line placement. PROCEDURE AUTOMOTIVE SERVICE PROFESSIONAL/SURGEON: Dr. Song Richter PGY-II ATTENDING PHYSICIAN: Dr. Dominick Dunbar, Pulmonary Critical Care Medicine in attendance. ANESTHESIA: 1% Lidocaine CONSENT: Consent was obtained prior to the procedure. The indications, risks and benefits were explained at length to the patient. All questions were answered. DESCRIPTION OF PROCEDURE: A time-out was performed. My hands were washed immediately prior to the procedure. I wore a surgical cap, mask, full gown and sterile gloves throughout the procedure. My attending, Dr. Dominick Dunbar, was present during and involved in all aspects of the procedure and assisted throughout. The patient was placed in the Trendelenburg position, and the right chest region was prepped using chlorhexidine scrub and draped in a sterile fashion using a full drape. The medial and lateral heads of the sternocleidomastoid muscles were identified as was the carotid pulse. The internal jugular vein was identified using ultrasound with sterile probe cover employed and was compressible. Anesthesia was achieved over the vein using 1% lidocaine. Using ultrasound guidance, the introducer needle was inserted into the right internal jugular vein under direct visualization. Venous blood was withdrawn, the syringe was removed, and the guidewire was advanced into the introducer needle. The guidewire was visualized in the internal jugular vein by ultrasound. A small incision was made at the skin surface, and a scalpel and introducer needle was exchanged for a dilator over the guidewire. After appropriate dilation was obtained, dilator was exchanged over the wire for a central venous catheter. The wire was sutured, and the catheter was sutured in place. A sterile dressing was placed over the catheter at the insertion site. The patient tolerated the procedure well without any hemodynamic compromise. At the procedure completion, all ports were aspirated and flushed properly. Postprocedure chest x-ray demonstrated proper placement of the central venous catheter. I, Dominick Dunbar, Directly observed the procedure and assisted in critical aspects of the procedure. [facility]. FOX MEMORIAL HOSPITALQamar
[2019-11-22] MEDS ORDERED: KCL 20MEQ IN 100ML SWI (KRUN) 20 MEQ in IV 1 EA IV ONE ×4 (22:45→23:45)
--- NOTE | 2019-11-22 22:59 | REP ---
REASON: Recent central line placement. COMPARISON: Earlier today. The right-sided internal jugular central venous catheter tip is at the superior vena cava/right atrial junction. There is no change in the lung villarreal. There is mild persistent right CP angle blunting. No new abnormal opacities have developed. The cardiomediastinal silhouette is stable. There is no change in the osseous structures. The technique utilized in obtaining the radiograph has magnified the cardiac silhouette and accentuated the interstitial markings. IMPRESSION: Central line placement, as described above. No other changes from the prior exam. Electronically Signed by Juanjo De La Torre DO 11/23/2019 01:23 P
--- NOTE | 2019-11-22 23:58 | REPVR ---
PROCEDURE INFORMATION: Exam: CT Abdomen And Pelvis Without Contrast Exam date and time: 11/22/2019 9:29 PM Age: 89 years old Clinical indication: Severe sepsis, R/O ascending cholangitits. TECHNIQUE: Imaging protocol: Computed tomography of the abdomen and pelvis without contrast. Radiation optimization: All CT scans at this facility use at least one of these dose optimization techniques: automated exposure control; mA and/or kV adjustment per patient size (includes targeted exams where dose is matched to clinical indication); or iterative reconstruction. COMPARISON: GALLBLADDER US 11/22/2019 9:37 PM FINDINGS: Tubes, catheters and devices: The balloon for the Bennett catheter is inflated in the prostatic urethra in the tip of the Bennett catheter is located in the posterior aspect of the prostate and is not located in the urinary bladder. There is a rectal tube in place. Lungs: There is dependent atelectasis in both lower lobes. There are calcified granulomas in the posterior segment of the right lower lobe. Heart: No cardiomegaly is noted. There is a trace amount of pericardial fluid. Coronary artery calcifications are present. Diaphragm: The right hemidiaphragm is mildly elevated. Liver: There are few punctate calcified granulomas in the liver. No liver abscesses are seen. Gallbladder and bile ducts: The gallbladder is distended and there is inflammatory fat stranding and a small amount of fluid around the gallbladder. No calcified gallstones are seen in the gallbladder. There is no dilation of the intrahepatic or extrahepatic biliary ducts. No bowel duct wall thickening is noted. No calcified stones are seen in the common bile duct. Pancreas: Unremarkable. No dilation of the main pancreatic duct is noted. There is no inflammatory fat stranding around the pancreas to suggest acute pancreatitis. Spleen: There are a few punctate calcified granulomas in the spleen. No splenomegaly. Adrenals: Normal. No adrenal mass is noted. Kidneys and ureters: The kidneys are unremarkable. No renal lesion is noted. No stones are noted in the kidneys or ureters. There is no hydronephrosis or hydroureter. Stomach and bowel: The stomach and small bowel are unremarkable. There is colonic diverticulosis without evidence for diverticulitis. There is no evidence for a bowel obstruction, colitis, pneumatosis intestinalis, intussusception, volvulus, or perforated viscus. Appendix: The retrocecal appendix is normal. No evidence for appendicitis. Intraperitoneal space: No abscess or free air is noted. Retroperitoneal space: No fluid collection. No mass. Vasculature: No abdominal aortic aneurysm is noted. There are extensive atherosclerotic calcifications. Lymph nodes: No enlarged lymph nodes. Bladder: There are small foci of gas in the urinary bladder. There is thickening of the wall of the bladder. No stones are noted in the bladder. Reproductive: The prostate gland is enlarged. The seminal vesicles are unremarkable. 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 The right L5 pars interarticularis is intact. There is a grade 1 anterolisthesis of L5 on S1. There is a slight levoscoliosis of the lumbar spine and degenerative changes in the lumbar spine. Degenerative changes of the pubic symphysis and both sacroiliac joints are also present. Soft tissues: There is edema in the subcutaneous tissues on both sides of the pelvis. No hernia or drainable soft tissue fluid collection is noted. IMPRESSION: 1. No biliary ductal dilation, bile duct wall thickening, or hepatic abscesses to suggest ascending cholangitis. 2. Distended gallbladder with inflammatory fat stranding and a small amount of free fluid around the gallbladder, which are findings that may indicate acalculous cholecystitis. 3. Bennett catheter malpositioned with the balloon inflated in the prostate gland. 4. Colonic diverticulosis without evidence for diverticulitis. Electronically signed by: Kalen Forte On 11/22/2019 23:58:37 PM
[2019-11-23] VITALS (20 sets, daily range): BP systolic 108–155; BP diastolic 57–102
[2019-11-23] MEDS ORDERED: VANCOMYCIN HCL 1,000 MG, VIAL MATE ADAPTER 1 EACH in D5W 250 ML IV SCH ×3
[2019-11-23] MEDS: PIPERACILLIN/TAZOBACTAM SOD 3.375 GM in D5W MINI-BAG PLUS 50 ML IV SCH ×4 (02:42→20:06)
[2019-11-23] MEDS ORDERED: HEPARIN SOD (PORCINE) 5000UNITS/ML VIAL (J1644 PER 1000UNITS) IV PRN ×3 (02:45→03:00)
[2019-11-23] MEDS ORDERED: HEPARIN DRIP 25,000 UNITS in IV 1 EA IV SCH ×2 (02:45→02:58)
[2019-11-23] MEDS: VANCOMYCIN HCL 750 MG, VIAL MATE ADAPTER 1 EACH in D5W 250 ML IV SCH (04:13)
[2019-11-23 05:25] LABS: HEMATOCRIT 31.2 % (42.0-52.0); HEMOGLOBIN 10.6 g/dl (13.5-17.5); MEAN CORPUSCULAR VOLUME 91.2 fl (80.0-96.0); PLATELET COUNT, AUTOMATED 121 10^3/uL (150-450); RED BLOOD COUNT 3.42 10^6/uL (4.30-6.10); WHITE BLOOD COUNT 8.4 10^3/uL (4.0-10.0)
[2019-11-23 05:48] LABS: ANISOCYTOSIS 1+; EOSINOPHILS 1 % (0-3); LYMPHOCYTES 11 % (16-44); MONOCYTES 2 % (0-5); NEUTROPHILS 86 % (28-66); PLATELET ESTIMATE DECREASED (NORMAL)
[2019-11-23 05:51] LABS: ALBUMIN 2.4 GM/DL (3.2-5.2); ALT/SGPT 1753 U/L (12-78); BILIRUBIN,TOTAL 3.2 MG/DL (0.2-1.0); BLOOD UREA NITROGEN 23 MG/DL (7-18); CALCIUM LEVEL 7.6 MG/DL (8.8-10.2); CARBON DIOXIDE LEVEL 23 MEQ/L (21-32); CHLORIDE LEVEL 107 MEQ/L (98-107); CREATININE FOR GFR 1.06 MG/DL (0.70-1.30); GLOMERULAR FILTRATION RATE > 60.0 (>35); GLUCOSE, FASTING 119 MG/DL (70-100); POTASSIUM SERUM 3.9 MEQ/L (3.5-5.1); SODIUM LEVEL 136 MEQ/L (136-145); TOTAL PROTEIN 5.9 GM/DL (6.4-8.2)
[2019-11-23] MEDS: LEVALBUTEROL 1.25 MG/0.5 ML CONCENTRATE NEB INH SCH ×4 (06:16→17:45)
[2019-11-23 07:46] LABS: TROPONIN I 8.49 NG/ML (< 0.10)
--- NOTE | 2019-11-23 08:07 | IPN ---
DATE: 11/23/2019 Mr. Anglin is feeling and looking much better than he did yesterday evening. After vigorous volume resuscitation yesterday and brief use of pressor amines, his blood pressure has stabilized. This morning he does not offer any complaints other than still feeling weak and tired but does admit that it is much better than yesterday. He says that still has not slept hardly at all and is looking forward to get some sleep today. Denies any pain, specifically denies any chest pain. He does admit to mild tenderness in right upper quadrant on my palpation but not overly severe. Vital signs: This morning blood pressure 123/64, heart rate has been from 60s to 80s. He continues to be febrile 101.1 this morning 100.8 at 5-o'clock. He is alert and oriented appropriate. I do not see any jugular venous pulse (JVP) elevation. Lungs are reasonably clear. Good air movement. Heart exam reveals regular rhythm. I do not appreciate any gallop, rub or murmur. Abdomen is slightly tender in the right upper quadrant but other than that it is soft with bowel sounds. Extremities are free of edema. Neurologically he is slightly weak but otherwise intact. LABORATORY: Basic metabolic panel is normal this morning with the exception of glucose 119. Liver function tests remain very elevated with bilirubin 3.2, AST 1600, ALT 1700 and alkaline phosphatase 450. His troponin initially was negative twice, but then at the 8-o'clock elevated to 2.3 and this morning one is pending. CBC: WBC count 8.4, hemoglobin 10.6, hematocrit 31, platelet count 121,000. Blood cultures are still pending. No positivity has been called and the imaging of right upper quadrant by ultrasound and CT are suggestive of are calculous cholecystitis but no cholangitis was seen. ASSESSMENT/PLAN: Mr. Anglin is an 89-year-old man who has remote history of coronary angioplasty who presented with several days of weakness to the point that he was not able to ambulate together what he describes as hot flashes which most likely represented febrile spells. At this point, I believe that the working diagnosis is cholecystitis. He had initial sepsis that was addressed by vigorous volume resuscitation. At this point, he seems to be stabilized. I believe that his troponin elevation is related to the sepsis and is probably type 2 myocardial infarction. I will continue monitoring. I think it is a little too early to restart him on statins and beta-blockers but hopefully later today or tomorrow morning. The management of the remaining issues remains with his primary team. LENNOX
[2019-11-23] MEDS: MULTIVITAMINS/MINERALS THERAP 1 TAB PO SCH (08:16)
[2019-11-23] MEDS: VITAMIN D 1,000 INTERNATIONAL UNITS TABLET PO SCH (08:16)
[2019-11-23] MEDS: PYRIDOXINE 50 MG TAB PO SCH (08:16)
[2019-11-23] MEDS: CYANOCOBALAMIN 500 MCG TAB PO SCH (08:16)
[2019-11-23 08:32] LABS: HEPATITIS B SURFACE ANTIGEN NEGATIVE (NEGATIVE)
[2019-11-23 08:59] LABS: HEPATITIS B CORE ANTIBODY IGM NEGATIVE (NEGATIVE); HEPATITIS C VIRUS ABY INDEX 0.2 INDEX (<0.8)
[2019-11-23] MEDS ORDERED: lisinopriL 20 MG TAB PO SCH (09:00)
[2019-11-23 09:02] LABS: HEPATITIS A ANTIBODY IGM NEGATIVE (NEGATIVE)
[2019-11-23 10:05] LABS: AMPHETAMINES URINE REFLEX NEGATIVE (NEGATIVE); BARBITURATES URINE REFLEX NEGATIVE (NEGATIVE); BENZODIAZEPINES URINE REFLEX PENDING CONFIRMATION (NEGATIVE); CANNABINOIDS URINE REFLEX NEGATIVE (NEGATIVE); COCAINE METABOLITE URINE REFLE NEGATIVE (NEGATIVE); METHADONE URINE REFLEX NEGATIVE (NEGATIVE); OPIATES URINE REFLEX NEGATIVE (NEGATIVE); PHENCYCLIDINE URINE REFLEX NEGATIVE (NEGATIVE)
[2019-11-23] MEDS: PANTOPRAZOLE 40MG VIAL (C9113 PER 1) IV SCH (10:08)
--- NOTE | 2019-11-23 10:14 | CCN ---
DATE: 11/23/2019 Critical care time 52 minutes this excludes all procedures. Mr. Anglin remains febrile this morning, temperature up to 102.0. This morning he is feeling slightly chills. Will obtain a second set of blood cultures. He remains on vancomycin and Zosyn. Blood pressure and heart rate improved with the use of IV fluids. Did not require vasopressor therapy. Urine output remained adequate just over 20 mL an hour. ScvO2 yesterday was 95 suggesting sepsis and shunting. No indication for adding dobutamine. Troponin trending up likely from hypoperfusion during the shock state. CT abdomen called to me last evening, concern for acute cholecystitis versus acalculous cholecystitis. No evidence of ascending cholangitis or alternative source of sepsis in the abdomen. Will continue to look for alternative sources but as of right now of the most likely source is the gallbladder, therefore plan on percutaneous drain today. With caution primary team to continue to monitor for other sources of infection as we continue treatment. The patient himself states he is sleepy. He did get much sleep overnight. PHYSICAL EXAMINATION: Temperature is 102.0 pulse 83, blood pressure is 132/63 with an oxygen saturation 94% on room air. Respiratory rate is 12. GENERAL: The patient is awake, alert and oriented. Affect and mood appropriate. Nutrition hygiene good. Nasal and oral mucosa pink and moist without lesions. Oropharynx without erythema or exudate. NECK: Neck is supple. No tracheal deviation or mass. LYMPH: No cervical, supraclavicular, or axillary adenopathy. CARDIAC: Regular S1, S2 without audible murmur, rub or gallop. No elevated jugular venous pulse (JVP). No dependent edema. PULMONARY: Clear to auscultation without rales, rhonchi or wheezes. No dullness to percussion. No accessory muscle use. ABDOMEN: Abdomen is fairly soft and nontender. No discernible hepatosplenomegaly. EXTREMITIES: No cyanosis, clubbing or edema. SKIN: No rash, jaundice or bruising. MUSCULOSKELETAL: No joint effusion. No evidence of recent trauma. Laboratory evaluation shows a sodium 136, potassium 3.9, chloride 107, bicarb of 23, BUN of 23, creatinine of 1.06 with a glucose of 119. AST, ALT are 1601 and 1753 respectively, alk phos is 445, which all have declined since yesterday's peak. Troponin is up to 8.49, albumin is 2.4, white blood cell count is 8.4, hemoglobin 10.6 with platelet count of 121. Chest x-ray Shows no new infiltrate. No mass. No lesions. IMPRESSION: 1. Sepsis, septic shock: Better perfused this morning. No evidence of mottling on exam. No pressor therapy required at this point in time. Will continue antibiotics. Continue to monitor for other sources of infection. However, the most likely source of infection at this point in time is the gallbladder so percutaneous drain will be performed. Heparin drip was stopped because of this. Will continue vancomycin and Zosyn as the exact cause of the sepsis has not yet been identified. We can also culture biliary drain to see if there is any evidence of infection there. Will repeat blood cultures again this morning as he continues to spike fevers. 2. Elevated troponin likely secondary to hypoperfusion state in an 89-year-old male. Will continue to monitor for arrhythmias. After procedure, will determine the safety of continuing with heparin. 3. Elevated liver enzymes also possibly due to hyperperfusion state, shock liver versus inflammation from cholecystitis. Liver enzymes trending down once perfusion was restored. 4. GI prophylaxis: Will place on Protonix, keep nothing by mouth. 5. Thromboembolic deterrent stockings (TEDS) and Kendalls for deep venous thrombosis (DVT) prophylaxis while off heparin.
[2019-11-23] MEDS ORDERED: SODIUM CHLORIDE 0.9% 1000ML IV ONE (10:45)
[2019-11-23] MEDS: NS 1,000 ML IV SCH (10:59)
[2019-11-23] MEDS ORDERED: cefTRIAXone SOD 1GM VIAL (J0696 PER 250MG) As Ordered ONE (15:29)
[2019-11-23] MEDS ORDERED: LIDOCAINE 1% MDV 20ML VIAL As Ordered ONE (15:35)
[2019-11-23] MEDS ORDERED: MIDAZOLAM INJ 2MG/2ML VIAL (J2250 PER 1MG) As Ordered ONE (15:36)
[2019-11-23] MEDS ORDERED: diphenhydrAMINE 50MG/ML VIAL (J1200) As Ordered ONE (15:36)
[2019-11-23] MEDS ORDERED: fentaNYL 100 MCG/2 ML INJECTION (J3010) As Ordered ONE (15:36)
--- NOTE | 2019-11-23 17:36 | IPNPDOC ---
Subjective Date Seen The patient was seen on 11/23/19. Subjective Chief Complaint/HPI Pt was transferred to ICU on 11/23/2019 evening and has a central line placed for concern with shock requiring pressors. Pt's blood pressure improved after receiving fluid boluses. GI was consulted for possible ascending cholangitis, pt's CT abd/pelvis showed cholecystitis, and surgery was consulted, recommended percutaneous drainage with IR. Pt is examined at bedside. Pt reported that he has been feeling both hot and cold. He reported generalized weakness but denies any nausea, diaphoresis, chest pain/chest pressure, palpitation, dyspnea, abdominal pain. Reported no BM yet. General: Reports: Chills Constitutional: Reports: Chills, Fever, Weakness (generalized) Pulmonary: Denies: Dyspnea Cardiovascular: Denies: Chest Pain, Palpitations, Orthopnea Gastrointestinal: Denies: Nausea, Abdominal Pain, Diarrhea Objective Physical Examination General Exam: Positive: Alert, Cooperative, Mild Distress, Other (mildly diaphoretic) Eye Exam: Positive: Conjunctiva & lids normal; Negative: Sclera icteric ENT Exam: Positive: Atraumatic, Mucous membr. moist/pink Neck Exam: Positive: Supple Chest Exam: Positive: Clear to auscultation, Normal air movement; Negative: Rales, Rhonchi, Wheezing Heart Exam: Positive: Rate Normal, Regular Rhythm, Normal S1, Normal S2; Negative: Murmurs Abdomen Exam: Positive: Normal bowel sounds, Soft; Negative: Tenderness Extremity Exam: Positive: Edema (1+ in b/l LE); Negative: Tenderness Skin Exam: Positive: Other skin issue (warm skin in b/l LE) Neuro Exam: Positive: Normal Speech, Normal Tone, Sensation Intact Psych Exam: Positive: Mental status NL, Anxiety (mild), Memory Intact; Negative: Mood NL Assessment /Plan Assessment Pt is a 89 yo with PMH of HTN and hyperlipidemia presented to to [facility] on 11/22/2019 due to generalized weakness that started in the morning and a fall d/t the weakness later develop fever dx with severe sepsis/septic shock with troponinemia 1. Severe sepsis/septic shock likely 2/2 acalculous cholecystitis, improved. Tachycardic, fever, leukocytosis, tachypnea, and new-onset AMS shortly after admission; now only has fever. Central line in place. Pt MAP lowest at 54 on 11/22/2019 but BP improved after receiving IVF and did not require pressors. Blood cx negX2 and urine cx pending. Lactic acidosis resolved. Cont empiric zosyn and Vanco. Cont IV NS. Neuro checks. Zofran PRN. IR was consulted and pt is getting a percutaneous drainage tube placement today. 2. Acalculous cholecystitis. CT abd/pelvis showed distended gallbladder with inflammatory fat stranding and free fluid around the gallbladder indicating acalculous cholecystitis. Surgery was consulted and recommended percutaneous drainage tube. Hold heparin drip 3.Troponinemia. Cardiology following, etiology thought likely 2/2 sepsis. 324mg Aspirin upon admission. S/p heparin bolus and drip, on hold for percutaneous tube placement. Cont tele. Cont to trend trop. Cont Vanco and Zosyn 4. Transaminitis 2/2 shock liver vs acalculous cholecystitis. Sudden increase in LFT after onset of AMS; LFT trending down. Pt received heparin bolus then drip as well as antibiotics Zosyn and Vanco. Heparin drip now on hold for percutaneous tube placement. Atorvastatin was initially started for LBBB, but will hold d/t transaminitis. Urine drug screen neg so far 5. Encephalopathy d/t sepsis vs TIA from insufficient blood supply 2/2 low MAP, resolved. Brief episodes of AMS with urinary incontinence. Ct head ordered in ER showed no acute abnormality. Neuro checks. On clear liquid now. Aspiration pr ecaution. 6. Concussion 2/2 fall d/t generalized weakness. CT head showed no acute abnormality. Neuro checks. Cortisol level ordered for generalized weakness. PT/OT. Fall precaution. 7. Anxiety. Hx of anxiety has been on low dose alprazolam for 30 years. Will hold alprazolam and notryptline at this time. Seizure precaution; may restart home alprazolam as needed. 8. HTN. Hold home lisinopril for now d/t precaution for shock kidney. Pt was hypotensive with MAP 54, received fluid rescuscitation. BP currently stable. Cont vital signs. DVT prophylaxis: SCD and TEDS, heparin drip on held GI prophylaxis: Protonix Pt is full code. Lives with girlfriend Laura but she reported no health care p earnest form was filled out. Two sons [place] [phone] and Zeb [phone] Plan/VTE VTE Prophylaxis Ordered?: Yes VS, I&O, 24H, [facility] Vital Signs/I&O Vital Signs Date Time Temp Pulse Resp B/P (MAP) Pulse Ox O2 Delivery O2 Flow Rate FiO2 11/23/19 17:00 90 129/65 (86) 92 Room Air 11/23/19 16:48 101.7 20 11/22/19 22:00 2.0 I&O- Last 24 Hours up to 6 AM 11/23/19 06:00 Intake Total 2350 ml Output Total 1425 ml Balance 925 ml Laboratory Data 24H LABS Laboratory Tests 2 11/22/19 20:12: Anion Gap 5L, Glomerular Filtration Rate 59.3, Calcium Level 7.5L, Total Bilirubin 2.5H, Direct Bilirubin 1.9H, Aspartate Amino Transf (AST/SGOT) 2254H, Alanine Aminotransferase (ALT/SGPT) 2013H, Alkaline Phosphatase 464H, Total Creatine Kinase 265, Creatine Kinase MB 7.0H, Creatine Kinase MB Relative Index 2.64, Troponin I 2.30#*H, Total Protein 5.0#L, Albumin 2.4#L, Albumin/Globulin Ratio 0.9, Amylase Level 12L, Lipase 52L, Hepatitis A IgM Antibody NEGATIVE, Hepatitis B Surface Antigen NEGATIVE, Hepatitis B Core IgM Antibody NEGATIVE, Hepatitis C Antibody Index 0.2 11/22/19 20:13: Central Line Venous O2 Saturation 95.0, Lactic Acid Followup at 4 Hours 1.7 11/22/19 22:28: Activated Partial Thromboplast Time 87.7H 11/23/19 05:10: Anion Gap 6L, Glomerular Filtration Rate > 60.0, Calcium Level 7.6L, Total Bilirubin 3.2H, Aspartate Amino Transf (AST/SGOT) 1601H, Alanine Aminotransferase (ALT/SGPT) 1753H, Alkaline Phosphatase 445H, Troponin I 8.49#*H, Total Protein 5.9L, Albumin 2.4L, Albumin/Globulin Ratio 0.7, Neutrophils (%) (Auto) , Nucleated Red Blood Cells % (auto) 0.0, Neutrophils 86H, Lymphocytes (Manual) 11L, Monocytes (Manual) 2, Eosinophils (Manual) 1, Anisocytosis 1+, Acanthocytes 1+, Platelet Estimate DECREASED 11/23/19 08:57: Urine Color REDH, Urine Appearance CLOUDYH, Urine pH 6.0, Urine Specific [place] 1.030, Urine Protein 2+H, Urine Glucose (UA) 1+H, Urine Ketones NEGATIVE, Urine Blood 3+H, Urine Nitrite NEGATIVE, Urine Bilirubin 1+H, Urine Urobilinogen 4.0H, Urine Leukocyte Esterase NEGATIVE, Urine WBC (Auto) TNTCH, Urine RBC (Auto) TNTCH, Urine Hyaline Casts (Auto) 0, Urine Bacteria (Auto) NEGATIVE, Urine Squamous Epithelial Cells 0, Urine Sperm (Auto) , Urine Opiates Screen NEGATIVE, Urine Methadone Screen NEGATIVE, Urine Barbiturates Screen NEGATIVE, Urine Phencyclidine Screen NEGATIVE, Urine Amphetamines Screen NEGATIVE, Urine Benzodiazepines Screen PENDING CONFIRMATIONH, Urine Cocaine Metabolite Screen NEGATIVE, Urine Cannabinoids Screen NEGATIVE 11/23/19 10:59: Troponin I 7.98*H 11/23/19 16:48: CBC/BMP Laboratory Tests 11/22/19 20:12 11/23/19 05:10 Microbiology Microbiology 11/23/19 Blood Culture, Received Pending 11/23/19 Blood Culture, Received Pending 11/23/19 Urine Culture, Received Pending 11/22/19 Respiratory Virus Panel (PCR) (PRATIBHA) - Final, Complete 11/22/19 Blood Culture - Preliminary, Resulted No growth after 24 hours . All specim... 11/22/19 Blood Culture - Preliminary, Resulted No growth after 24 hours . All specim... GME ATTESTATION GME ATTESTATION My faculty preceptor for this patient encounter was physically present during the encounter and was fully available. All aspects of the patient interview, examination, medical decision making process, and medical care plan development were reviewed and approved by the faculty preceptor. The faculty preceptor is aware and concurs with the plan as stated in the body of this note and will attest to such by his/her cosignature. GME ATTESTATION GME ATTESTATION My faculty preceptor for this patient encounter was physically present during the encounter and was fully available. All aspects of the patient interview, examination, medical decision making process, and medical care plan development were reviewed and approved by the faculty preceptor. The faculty preceptor is aware and concurs with the plan as stated in the body of this note and will attest to such by his/her cosignature. ATTENDING NOTE Pt seen and examined by me. Agree with the above assessment and plan. JACY COHN DO Nov 23, 2019 17:36 KARINA MEJIA MD Nov 26, 2019 15:18
[2019-11-23] MEDS: MORPHINE 2 MG/ML 1ML VIAL (J2270) IV PRN (17:39)
[2019-11-23 17:45] LABS: ALBUMIN 2.4 GM/DL (3.2-5.2); ALT/SGPT 1278 U/L (12-78); BILIRUBIN,TOTAL 3.7 MG/DL (0.2-1.0); BLOOD UREA NITROGEN 19 MG/DL (7-18); CALCIUM LEVEL 7.6 MG/DL (8.8-10.2); CARBON DIOXIDE LEVEL 22 MEQ/L (21-32); CHLORIDE LEVEL 106 MEQ/L (98-107); CREATININE FOR GFR 0.78 MG/DL (0.70-1.30); GLOMERULAR FILTRATION RATE > 60.0 (>35); GLUCOSE, FASTING 89 MG/DL (70-100); POTASSIUM SERUM 3.6 MEQ/L (3.5-5.1); SODIUM LEVEL 136 MEQ/L (136-145); TOTAL PROTEIN 5.4 GM/DL (6.4-8.2); TROPONIN I 6.67 NG/ML (< 0.10); VANCOMYCIN LEVEL TROUGH 7.1 UG/ML (10.0-20.0)
[2019-11-23] MEDS ORDERED: VANCOMYCIN HCL 1,000 MG, VIAL MATE ADAPTER 1 EACH in D5W 250 ML IV ONE (18:00)
[2019-11-23] MEDS ORDERED: ALPRAZolam 0.25 MG TAB PO ONE (18:00)
--- NOTE | 2019-11-23 18:02 | POST-OPPD ---
Postoperative Procedure Note Date Of Procedure: Nov 23, 2019 Time Of Procedure: 15:50 PREOPERATIVE DIAGNOSIS: cholecystitis/ not surgical candidate POSTOPERATIVE DIAGNOSIS: same FINDINGS: distended gallbladder with percholecystic fat stranding PROCEDURE: 10 F cholecystostomy placed. Daily catheter flushing with 10 mil sterile saline is required. Follow up in IR clinic in 6 weeks for ongoing drain management. SURGEON: Parker ANESTHESIA: local ESTIMATED BLOOD LOSS: < 5 ml COMPLICATIONS: none POSTOPERATIVE CONDITION: stable ADELINA ARMIJO MD Nov 23, 2019 18:02
--- NOTE | 2019-11-23 19:54 | CR.PDOC ---
General Date of Consultation: Nov 23, 2019 Referring Provider: JACY COHN DO Attending Physician: TRAMAINE ONEILL MD Consultation Primary physician/ hospitalist: -Dr. Cohn Reason for consult: -Abnormal liver tests HPI: 89-year-old male patient with HTN, HLD, CAD, anxiety , was admitted to [facility] for generalized weakness and shortness of breath. Patient was noted to have altered mental status after her hospitalization and was transferred to ICU for severe sepsis. Patient was noted to have persistent fevers with chills, abnormal labs, severely elevated transaminases, elevated troponin and some EKG changes. Patient was evaluated by cardiology and GI was consulted for abnormal liver tests and suspected cholangitis. Patient subsequently underwent repeat labs with abdominal imaging - ultrasound and CT scan of abdomen which showed acalculous cholecystitis with distended gallbladder. Today, patient underwent IR guided cholecystostomy drain placement. On examination patient continues to have chills with shivering and persistent documented fever spikes. Patient reports some pain in the abdomen at the site of the IR drain, but denies pain anywhere else in the abdomen. Patient reports not eating any food for the past few days and not having any bowel movement for the last 3 days. Pertinent negative GI symptoms: Patient denies sick contacts, recent travel, nausea, vomiting, diarrhea, loss of appetite, early satiety or unintentional weight loss. No history of hematemesis, melena or hematochezia. Review of Systems: GI: as stated above CVS: No chest pain, No palpitations, No leg swelling. RS: As above. Patient is noted to have wheezing. 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 Skin: No rash : No hematuria, No burning sensation of the urine ENT: No ear discharge/ pain, No dysphagia. Eyes: No photophobia. Jaundice Home medications: reviewed. Antithrombotic agents: -None Medical h/o: As above. Surgical h/o: None on abdomen. Social h/o: Alcohol: -. Denies chronic/heavy alcohol use, smoking:, Denies, IVDA/ drugs: Denies. Family h/o of GI cancers - None Prior Endoscopies: None in [facility] Prior GI evaluations: -And in [facility] Exam: Vitals: reviewed General: Alert and oriented x 3, moderate distress from chills and shortness of breath. HEENT: NO pallor, no icterus. Normal oropharynx, NO cervical lymph nodes. Chest: symmetric with bilateral clear air entry, CVS: S1, S2 heard, normal, no murmurs . Abdomen: non-distended, no surgical scars, soft, right upper quadrant cholecystostomy drain, non-tender, no palpable masses, normal bowel sounds heard. Rectal exam: Patient refused. Extremities: no pedal edema, pulses palpable. BRIDGE DESIGN ENGINEER: no focal motor or sensory deficits. Moves all extremities Skin: no rash. Labs: reviewed. Imaging: reviewed. Impression: -- Generalized weakness with shortness of breath and fever with initial labs showing elevated WBC, left shift, distended gall bladder with pericholecystic fluid without gall stones -- DDx- Likely severe sepsis from acalculous cholecystitis vs r/o other sources of the sepsis. Rule out other causes for Hyperthermia and tremulousness -- Could be secondary to sepsis vs r/o Benzodiazepine withdrawal -- Abnormal liver tests with predominant transaminitis, with elevated LDH levels, work up negative for acute viral hepatitis - DDX- Likely ischemic hepatopathy vs severe cholecystitis vs less likely cholangitis (no gallstones/ normal CBD). Recommendations: - Patient educated about the test results, possible differential diagnoses and All questions answered. - Follow the septic work up and adjust antibiotics as per the primary team. - Please also send cholecystostomy drain fluid for culture and sensitivities. - IV hydration. - Monitor liver panel every 12- 24 hours along with INR and BUN/Cr. If any acute worsening of the INR or mental status to consider transfer to Liver transplant center. - Supportive care - Consider Thiamine and folic acid and IV hydration. - Avoid hepatotoxic medications. - Can resume patient home medication of benzodiazepine with close monitoring of respiratory status. - At this time due to low clinical suspicion for Cholangitis, discussed the risks and benefit and alternatives of Urgent ERCP. The risks outweigh the benefits at this time. - GI will follow. Please update GI if any acute change in status. Plan of care discussed with patient and primary team. Patient verbalized understanding and agreed with the plan. Vital Signs/I&O Vital Signs Date Time Temp Pulse Resp B/P (MAP) Pulse Ox O2 Delivery O2 Flow Rate FiO2 11/23/19 19:00 104.7 116 18 150/72 (98) 94 Room Air 11/23/19 16:18 2 I&O- Last 24 Hours up to 6 AM 11/23/19 05:59 Intake Total 2320 ml Output Total 1025 ml Balance 1295 ml Laboratory Data Labs 24H Laboratory Tests 2 11/22/19 20:12: Anion Gap 5L, Glomerular Filtration Rate 59.3, Calcium Level 7.5L, Total Biliru bin 2.5H, Direct Bilirubin 1.9H, Aspartate Amino Transf (AST/SGOT) 2254H, Alanine Aminotransferase (ALT/SGPT) 2013H, Alkaline Phosphatase 464H, Total Creatine Kinase 265, Creatine Kinase MB 7.0H, Creatine Kinase MB Relative Index 2.64, Troponin I 2.30#*H, Total Protein 5.0#L, Albumin 2.4#L, Albumin/Globulin Ratio 0.9, Amylase Level 12L, Lipase 52L, Hepatitis A IgM Antibody NEGATIVE, Hepatitis B Surface Antigen NEGATIVE, Hepatitis B Core IgM Antibody NEGATIVE, Hepatitis C Antibody Index 0.2 11/22/19 20:13: Central Line Venous O2 Saturation 95.0, Lactic Acid Followup at 4 Hours 1.7 11/22/19 22:28: Activated Partial Thromboplast Time 87.7H 11/23/19 05:10: Anion Gap 6L, Glomerular Filtration Rate > 60.0, Calcium Level 7.6L, Total Bi lirubin 3.2H, Aspartate Amino Transf (AST/SGOT) 1601H, Alanine Aminotransferase (ALT/SGPT) 1753H, Alkaline Phosphatase 445H, Troponin I 8.49#*H, Total Protein 5.9L, Albumin 2.4L, Albumin/Globulin Ratio 0.7, Neutrophils (%) (Auto) , Nucleated Red Blood Cells % (auto) 0.0, Neutrophils 86H, Lymphocytes (Manual) 11L, Monocytes (Manual) 2, Eosinophils (Manual) 1, Anisocytosis 1+, Acanthocytes 1+, Platelet Estimate DECREASED 11/23/19 08:57: Urine Color REDH, Urine Appearance CLOUDYH, Urine pH 6.0, Urine Specific [place] 1.030, Urine Protein 2+H, Urine Glucose (UA) 1+H, Urine Ketones NEGATIVE, Urine Blood 3+H, Urine Nitrite NEGATIVE, Urine Bilirubin 1+H, Urine Urobilinogen 4.0H, Urine Leukocyte Esterase NEGATIVE, Urine WBC (Auto) TNTCH, Urine RBC (Auto) TNTCH, Urine Hyaline Casts (Auto) 0, Urine Bacteria (Auto) NEGATIVE, Urine Squamous Epithelial Cells 0, Urine Sperm (Auto) , Urine Opiates Screen NEGATIVE, Urine Methadone Screen NEGATIVE, Urine Barbiturates Screen NEGATIVE, Urine Phencyclidine Screen NEGATIVE, Urine Amphetamines Screen NEGATIVE, Urine Benzodiazepines Screen PENDING CONFIRMATIONH, Urine Cocaine Metabolite Screen NEGATIVE, Urine Cannabinoids Screen NEGATIVE 11/23/19 10:59: Troponin I 7.98*H 11/23/19 16:48: Troponin I 6.67*H, Anion Gap 8, Glomerular Filtration Rate > 60.0, Calcium Level 7.6L, Total Bilirubin 3.7H, Aspartate Amino Transf (AST/SGOT) 844H, Alanine Aminotransferase (ALT/SGPT) 1278H, Alkaline Phosphatase 393H, Total Protein 5.4L, Albumin 2.4L, Albumin/Globulin Ratio 0.8, Vancomycin Level Trough 7.1L 11/23/19 19:14: CBC/BMP Laboratory Tests 11/22/19 20:12 11/23/19 05:10 11/23/19 16:48 Microbiology Microbiology 11/23/19 Blood Culture, Received Pending 11/23/19 Blood Culture, Received Pending 11/23/19 Urine Culture, Received Pending 11/22/19 Respiratory Virus Panel (PCR) (PRATIBHA) - Final, Complete 11/22/19 Blood Culture - Preliminary, Resulted No growth after 24 hours . All specim... 11/22/19 Blood Culture - Preliminary, Resulted No growth after 24 hours . All specim... Allergies Coded Allergies: No Known Allergies (Unverified , 01/28/17) Home Medications Scheduled Atorvastatin Calcium (Atorvastatin Calcium) 40 Mg Tablet, 40 MG PO QHS, (Reported) Carvedilol (Carvedilol) 6.25 Mg Tablet, 6.25 MG PO BID, (Reported) Cholecalciferol (Vitamin D3) (Vitamin D3) 1,000 Unit Tablet, 1,000 UNITS PO DAILY, (Reported) Cyanocobalamin (Vitamin B-12) (Vitamin B-12) 1,000 Mcg Tablet, 1,000 MCG PO DAILY, (Reported) Lisinopril (Lisinopril) 20 Mg Tablet, 20 MG PO DAILY, (Reported) Multivitamins (Thera M Plus Tablet) 1 Each Tablet, 1 TAB PO DAILY, (Reported) Nortriptyline HCl (Nortriptyline HCl) 50 Mg Capsule, 50 MG PO QHS, (Reported) [place]-3/Dha/Epa/Fish Oil (Fish Oil 1,000 mg Softgel) 1 Each Capsule, 1,000 MG PO DAILY, (Reported) Pyridoxine HCl (Vitamin B6) (Vitamin B-6) 50 Mg Tablet, 50 MG PO DAILY, (Reported) Scheduled PRN Alprazolam (Alprazolam) 0.5 Mg Tablet, 0.5 MG PO BID PRN for ANXIETY, (Reported) Ibuprofen (Ibuprofen) 200 Mg Capsule, 200 MG PO QID PRN for PAIN, (Reported) TRAMAINE ONEILL MD Nov 23, 2019 19:54
[2019-11-23] MEDS: LEVALBUTEROL 1.25 MG/0.5 ML CONCENTRATE NEB INH PRN (20:10)
[2019-11-23] MEDS: HEPARIN SOD (PORCINE) 5000UNITS/ML VIAL (J1644 PER 1000UNITS) SQ SCH (22:11)
[2019-11-24] VITALS (21 sets, daily range): BP systolic 97–142; BP diastolic 56–84
[2019-11-24] MEDS ORDERED: VANCOMYCIN HCL 1,000 MG, VIAL MATE ADAPTER 1 EACH in D5W 250 ML IV SCH ×3
[2019-11-24] MEDS: PIPERACILLIN/TAZOBACTAM SOD 3.375 GM in D5W MINI-BAG PLUS 50 ML IV SCH ×4 (02:48→20:45)
[2019-11-24 04:42] LABS: HEMATOCRIT 32.4 % (42.0-52.0); MEAN CORPUSCULAR HEMOGLOBIN 30.8 pg (27.0-33.0); MEAN CORPUSCULAR VOLUME 90.8 fl (80.0-96.0); PLATELET COUNT, AUTOMATED 135 10^3/uL (150-450); RED BLOOD COUNT 3.57 10^6/uL (4.30-6.10); WHITE BLOOD COUNT 8.1 10^3/uL (4.0-10.0)
[2019-11-24 05:14] LABS: ALBUMIN 2.2 GM/DL (3.2-5.2); ALT/SGPT 934 U/L (12-78); BILIRUBIN,TOTAL 3.9 MG/DL (0.2-1.0); BLOOD UREA NITROGEN 23 MG/DL (7-18); CALCIUM LEVEL 7.3 MG/DL (8.8-10.2); CARBON DIOXIDE LEVEL 22 MEQ/L (21-32); CHLORIDE LEVEL 106 MEQ/L (98-107); CREATININE FOR GFR 0.96 MG/DL (0.70-1.30); GLOMERULAR FILTRATION RATE > 60.0 (>35); GLUCOSE, FASTING 113 MG/DL (70-100); POTASSIUM SERUM 3.5 MEQ/L (3.5-5.1); SODIUM LEVEL 137 MEQ/L (136-145)
[2019-11-24 05:28] LABS: ATYPICAL LYMPH 1 % (0-5); LYMPHOCYTES 8 % (16-44); MONOCYTES 4 % (0-5); NEUTROPHILS 85 % (28-66)
[2019-11-24 05:29] LABS: ANISOCYTOSIS 1+; CRENATED RBC 2+; POIKILOCYTOSIS 1+
[2019-11-24] MEDS: NS 1,000 ML IV SCH ×3 (05:33→21:15)
[2019-11-24] MEDS: HEPARIN SOD (PORCINE) 5000UNITS/ML VIAL (J1644 PER 1000UNITS) SQ SCH ×3 (05:35→20:45)
[2019-11-24 05:47] LABS: PLATELET ESTIMATE DECREASED (NORMAL)
[2019-11-24] MEDS: LEVALBUTEROL 1.25 MG/0.5 ML CONCENTRATE NEB INH SCH ×4 (07:14→19:55)
--- NOTE | 2019-11-24 07:48 | CR ---
DATE OF CONSULTATION: 11/23/2019 The patient was seen this morning concerning cholecystitis after his labs returned with elevated liver function tests. The concern was that he may be developing cholecystitis as the etiology for his admission/sepsis issues. The patient presented to the emergency room yesterday with sepsis, but mostly was complaining of shortness of breath, some weakness, lightheadedness, and vertigo. Upon his workup in the emergency room yesterday, imaging studies had been performed including CT of the abdomen and pelvis which revealed a distended gallbladder with some questionable inflammatory changes around this suggestive of possible acalculous cholecystitis. However, gallbladder ultrasound was performed and revealed no gallbladder wall thickening, no gallstones, no inflammatory changes. Once again, liver function tests were up this morning and the concern for acalculous cholecystitis was entertained and I was asked to see the patient. PAST MEDICAL HISTORY: Significant for history of coronary artery disease, history of hypertension, history of hypercholesterolemia, history of anxiety, history of frequent urinary tract infections, history of tonsillectomy, and transurethral resection of the prostate (TURP). MEDICATIONS: Include Xanax, atorvastatin, carvedilol, vitamin D, vitamin B12, ibuprofen, lisinopril, nortriptyline, and other additional supplements. PHYSICAL EXAMINATION: Reveals an 89-year-old who looks stated age. HEENT is unremarkable. Neck: Supple, without adenopathy. Lungs are clear anteriorly. Heart is regular, tachycardiac. Abdomen is softly distended, nontender, without significant guarding, rebound or peritoneal signs. His AST is 1600, ALT is 1700, with alkaline phosphatase of 443 and elevated bilirubin. IMPRESSION AND PLAN: The patient has elevated liver function tests most likely secondary to shock liver as the etiology. I anticipate that it will be very difficult to determine whether this individual has acalculous cholecystitis, but I do not feel that this was the etiology for his hospitalization. It may be a secondary problem per se and it is not unreasonable with shock liver that he may be developing acalculous cholecystitis. Thus, at this point, given that a HIDA scan would probably not be helpful, especially with the elevated liver function tests suggesting liver dysfunction, at this time I would recommend going straight to a percutaneous cholecystostomy tube. Via ultrasound should be fine, given he has a distended gallbladder. I have discussed this recommendation with the primary providers and they will order the ultrasound-guided drainage. Otherwise, I would recommend supportive care at this time. Surgically, no indication for operative intervention at this time and, more importantly, if he does have acalculous cholecystitis, treatment with a percutaneous drainage should be adequate for this individual. Unfortunately, I do have very significant concerns that he would be an extremely high risk individual for operative intervention at this time given his EKG changes, etc., and shock liver present.
[2019-11-24] MEDS: PANTOPRAZOLE 40MG VIAL (C9113 PER 1) IV SCH (08:29)
[2019-11-24] MEDS: PYRIDOXINE 50 MG TAB PO SCH (08:33)
[2019-11-24] MEDS: CYANOCOBALAMIN 500 MCG TAB PO SCH (08:33)
[2019-11-24] MEDS: MULTIVITAMINS/MINERALS THERAP 1 TAB PO SCH (08:33)
[2019-11-24] MEDS: THIAMINE 200MG/2ML VIAL (J3411 PER 100MG) IV SCH (08:33)
[2019-11-24] MEDS: VITAMIN D 1,000 INTERNATIONAL UNITS TABLET PO SCH (08:39)
--- NOTE | 2019-11-24 09:28 | IPN ---
DATE OF SERVICE: 11/24/2019 SUBJECTIVE: Mr. Anglin is seen and examined at the bedside this morning. He reports that he feels "okay" and that he is ready to go home. He underwent cholecystostomy tube placement yesterday in interventional radiology (IR) and he denies any abdominal pain at this time. He does report that he has not had a bowel movement in several days. Otherwise, he has no chest pain, no shortness of breath and no lightheadedness or dizziness. He had no issues overnight and no cardiac events were reported by nursing. OBJECTIVE: His vitals are temperature 99 rectally, pulse 77, respiratory rate 16, blood pressure 116/56, pulse oximetry 93% on room air. He did have a T-max overnight of 104.7. Ins and Outs: He is net positive 340. He had about 100 mL of urine overnight. His cholecystostomy drain drained about 40 mL overnight. His weight is now 87.1. PHYSICAL EXAMINATION: Generally, he is laying in bed. He is calm, cooperative, in no acute distress, appearing stated age. HEENT: His extraocular movements are intact. Pupils are equally round and reactive to light. His mucous membranes are moist. Neck is supple with no thyromegaly. No lymphadenopathy. Chest is clear to auscultation bilaterally with no adventitious breath sounds appreciated. Cardiovascular: He is normal sinus rhythm. Regular rate and rhythm. No murmurs, rubs or gallops appreciated. Peripheral pulses are brisk. He has no jugular venous distention (JVD). Abdomen is soft and nontender to palpation in all four quadrants. He does have a right lateral cholecystostomy tube placed with dressing intact which is clean, dry and intact. Positive bowel sounds. No masses. No organomegaly. Extremities: He has no clubbing, cyanosis or edema. Skin: No new rashes. Warm and well perfused. Lymphatics: He has no enlarged lymph nodes in the neck or the groin. Psychiatric: He has normal mood and normal affect. He is awake, alert and oriented times three. Neurologic: His cranial nerves II-XII are intact with no focal deficits. LABS: Today, his white blood cell count is 8.1, hemoglobin 11, hematocrit 32.4, platelet count 135. Chemistries: Sodium 137, potassium 3.5, carbon dioxide 22, BUN 23, and creatinine 0.96. Total bilirubin has gone up to 3.9 from 3.7 yesterday. His AST is 462 and ALT is 934 - both have decreased since yesterday. His alkaline phosphatase is 354, which is lower than yesterday. His ammonia level was checked and it was 18. As far as his troponins go, his troponin peaked at 8.4 yesterday morning and has come down now to 5.8. Otherwise, toxicology screen was ordered and is pending. He did have a urinalysis done yesterday morning which showed too many to count white blood cells and red blood cells and 1+ bilirubin and 3+ blood. To date, his blood cultures have been negative. He has two more blood cultures pending and a urine culture pending as well. Respiratory viral panel was negative. IMAGING: He has had no new imaging in the past day. ASSESSMENT: This is an 89-year-old man who came in with weakness, found to be septic and was febrile with questionable acalculous cholecystitis, now with liver enzymes trending down, but bilirubin trending up. PLAN: We will make no changes at this time to his cardiac medications. His heart rate is acceptable and he is sinus rhythm. 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 He will eventually need to be on Plavix, but we will wait for the time being before starting it given that he just had his cholecystostomy tube. In addition to that, he will also need to be on a statin, but again we will wait until his liver enzymes trend down. Otherwise, we agree with all of the current medications and we will continue to monitor this patient closely.
[2019-11-24] MEDS: FOLIC ACID 1 MG in NS 50 ML IV SCH (10:01)
[2019-11-24] MEDS ORDERED: IBUPROFEN 400 MG TAB PO PRN (10:45)
--- NOTE | 2019-11-24 10:53 | ECGEPIP ---
[facility] Test Date: 2019-11-23 Pat Name: MILI TURNER Department: Room: [place] [address] Gender: Male [place] Helper: CLAUDE : [id number] Requested By: JACY COHN Order Number: [id number] Reading MD: Ethan Flores Measurements Intervals [place] Rate: 90 P: 59 IN: 213 QRS: 57 QRSD: 147 T: -40 QT: 404 QTc: 495 Interpretive Statements Normal sinus rhythm with first degree AV block Low QRS complex voltage in the limb leads Left bundle branch block No significant change when compared to prior tracing of 11/22/2019 Electronically Signed on 11-24-2019 10:53:31 EDT by Ethan Flores
[2019-11-24] MEDS ORDERED: ALPRAZolam 0.25 MG TAB PO ONE (11:00)
[2019-11-24] MEDS ORDERED: NS 1,000 ML IV SCH (13:15)
[2019-11-24] MEDS: KETOROLAC 30 MG/ML 1ML VIAL IV PRN (15:43)
--- NOTE | 2019-11-24 17:13 | IPNPDOC ---
Subjective Date Seen The patient was seen on 11/24/19. Subjective Chief Complaint/HPI Pt is examined at bedside. He reported chills with generalized weakness, denies dizziness, lightheadedness, chest pain/chest pressure, nausea, vomiting, abdominal pain, or any other complaints. Reported no BM but has been passing gas Constitutional: Reports: Chills; Denies: Fever Pulmonary: Denies: Dyspnea Cardiovascular: Denies: Chest Pain Gastrointestinal: Denies: Nausea, Vomiting, Abdominal Pain, Diarrhea Genitourinary: Reports: Hematuria Objective Physical Examination General Exam: Positive: Alert, Cooperative, No Acute Distress, Other (laying on bed with NC in place) Eye Exam: Positive: Conjunctiva & lids normal; Negative: Sclera icteric ENT Exam: Positive: Atraumatic, Mucous membr. moist/pink Neck Exam: Positive: Supple Chest Exam: Positive: Clear to auscultation, Normal air movement; Negative: Rales, Rhonchi, Wheezing Heart Exam: Positive: Rate Normal, Regular Rhythm, Normal S1, Normal S2; Negative: Murmurs Abdomen Exam: Positive: Normal bowel sounds, Soft; Negative: Tenderness Extremity Exam: Negative: Cyanosis, Tenderness Neuro Exam: Positive: Normal Speech, Normal Tone Psych Exam: Positive: Mental status NL, Anxiety (minimal), Memory Intact Assessment /Plan Assessment Pt is a 89 yo with PMH of HTN and hyperlipidemia presented to to [facility] on 11/22/2019 due to generalized weakness that started in the morning and a fall d/t the weakness later develop fever dx with severe sepsis/septic shock with troponinemia, s/p central line placement and removal and percutaneous tube placement 1. Severe sepsis/septic shock likely 2/2 acalculous cholecystitis, improved. Tachycardic, fever, leukocytosis, tachypnea, and new-onset AMS shortly after admission; now only has fever. Pt MAP lowest at 54 on 11/22/2019 but BP improved after receiving IVF and did not require pressors. Blood cx negX2 and urine cx neg. Lactic acidosis resolved. Cont empiric zosyn and Vanco. Cont IV NS. Neuro checks. Zofran PRN. Pt is s/p percutaneous tube placement. 2. Acalculous cholecystitis. CT abd/pelvis showed distended gallbladder with inflammatory fat stranding and free fluid around the gallbladder indicating acalculous cholecystitis. Pt is s/p percutaneous tube placement, gallbladder fluid culture pending. Total percutaneous drainage output on 11/22=40ml and on 11/23=25ml. On full liquid now. Increase IV fluid rate as PO intake and urine output are mildly decreased without oligouria at this time. 3.Troponinemia, improving. Cardiology following, etiology thought likely 2/2 sepsis. 324mg Aspirin upon admission. S/p heparin bolus and drip. Cont tele. Cont Vanco and Zosyn 4. Transaminitis 2/2 shock liver vs acalculous cholecystitis. Sudden increase in LFT after onset of AMS; LFT trending down. Pt received heparin bolus then drip as well as antibiotics Zosyn and Vanco. Atorvastatin was initially started for LBBB, but will hold d/t transaminitis. Urine drug screen neg so far 5. Encephalopathy d/t sepsis vs TIA from insufficient blood supply 2/2 low MAP, resolved. Brief episodes of AMS with urinary incontinence. Ct head ordered in ER showed no acute abnormality. Neuro checks. On full liquid now. Aspiration precaution. 6. Concussion 2/2 fall d/t generalized weakness. CT head showed no acute abnormality. Neuro checks. PT/OT. Fall precaution. 7. Anxiety. Hx of anxiety has been on low dose alprazolam BID for 30 years. Will hold alprazolam and nortriptyline at this time. Seizure precaution; may give alprazolam as needed to prevent withdrawal. 8. HTN. Hold home lisinopril for now d/t precaution for shock kidney. Pt was hy potensive with MAP 54, received fluid resuscitation. BP currently stable. Cont vital signs. DVT prophylaxis: SCD and TEDS, heparin SC GI prophylaxis: Protonix Pt is full code. Lives with girlfriend Laura but she reported no health care proxy form was filled out. Two sons Kerrick [phone] and Zeb [phone] Plan/VTE VTE Prophylaxis Ordered?: Yes Plan IVF: Increase Diet: Advance Activity: Advance Diagnostics: Repeat Labs in AM Anticipated Discharge: Home VS, I&O, 24H, Fishbone Vital Signs/I&O Vital Signs Date Time Temp Pulse Resp B/P (MAP) Pulse Ox O2 Delivery O2 Flow Rate FiO2 11/24/19 16:00 99.9 83 20 130/60 (83) 96 Room Air 11/24/19 01:00 2.0 I&O- Last 24 Hours up to 6 AM 11/24/19 06:00 Intake Total 1370 ml Output Total 915 ml Balance 455 ml Laboratory Data 24H LABS Laboratory Tests 2 11/23/19 19:14: Ammonia 18 11/24/19 04:25: Neutrophils (%) (Auto) , Nucleated Red Blood Cells % (auto) 0.0, Neutrophils 85H, Band Neutrophils 2, Lymphocytes (Manual) 8L, Monocytes (Manual) 4, Atypical Lymphocytes 1, Poikilocytosis 1+, Anisocytosis 1+, Crenated Cell 2+, Platelet Estimate DECREASED, Anion Gap 9, Glomerular Filtration Rate > 60.0, Calcium Level 7.3L, Total Bilirubin 3.9H, Aspartate Amino Transf (AST/SGOT) 462H, Alanine Aminotransferase (ALT/SGPT) 934H, Alkaline Phosphatase 354H, Troponin I 5.80*H, Total Protein 6.0L, Albumin 2.2L, Albumin/Globulin Ratio 0.6 11/24/19 10:48: Troponin I 4.42#*H 11/24/19 13:00: CBC/BMP Laboratory Tests 11/24/19 04:25 Microbiology Microbiology 11/24/19 Gram Stain - Final, Resulted 11/24/19 Body Fluid Culture, Resulted Pending 11/23/19 Blood Culture - Preliminary, Resulted No growth after 24 hours . All specim... 11/23/19 Blood Culture - Preliminary, Resulted No growth after 24 hours . All specim... 11/23/19 Urine Culture - Final, Complete 11/22/19 Respiratory Virus Panel (PCR) (PRATIBHA) - Final, Complete 11/22/19 Blood Culture - Preliminary, Resulted No Growth after 48 hours. All Specime... 11/22/19 Blood Culture - Preliminary, Resulted No Growth after 48 hours. All Specime... GME ATTESTATION GME ATTESTATION My faculty preceptor for this patient encounter was physically present during the encounter and was fully available. All aspects of the patient interview, examination, medical decision making process, and medical care plan development were reviewed and approved by the faculty preceptor. The faculty preceptor is aware and concurs with the plan as stated in the body of this note and will attest to such by his/her cosignature. ATTENDING NOTE Pt seen and examined by me. Agree with the above assessment and plan. JACY COHN DO Nov 24, 2019 17:13 KARINA MEJIA MD Nov 26, 2019 15:18
[2019-11-24] MEDS: MORPHINE 2 MG/ML 1ML VIAL (J2270) IV PRN (20:46)
[2019-11-24] MEDS ORDERED: AMIODARONE HCL 150 MG/100 ML PREMIXED BAG (NEXTERONE) (J0282 PER 30MG) As Ordered ONE (22:56)
[2019-11-24] MEDS ORDERED: AMIODARONE HCL 360 MG/200 ML PREMIXED BAG (NEXTERONE) (J0282 PER 30MG) As Ordered ONE (23:07)
[2019-11-24] MEDS ORDERED: AMIODARONE HCL 360 MG in IV 1 EA IV SCH (23:15)
[2019-11-24] MEDS ORDERED: AMIODARONE HCL 150 MG in IV 1 EA IV ONE ×2 (23:15→23:30)
[2019-11-24] MEDS ORDERED: METOPROLOL 5 MG/5 ML VIAL IV STA (23:16)
[2019-11-24] MEDS ORDERED: METOPROLOL 5 MG/5 ML VIAL As Ordered ONE (23:19)
[2019-11-24] MEDS ORDERED: CARVedilol 3.125 MG TAB PO ONE (23:45)
[2019-11-25] VITALS (15 sets, daily range): BP systolic 114–158; BP diastolic 58–77
[2019-11-25 00:23] LABS: BLOOD UREA NITROGEN 25 MG/DL (7-18); CALCIUM LEVEL 7.4 MG/DL (8.8-10.2); CARBON DIOXIDE LEVEL 24 MEQ/L (21-32); CHLORIDE LEVEL 106 MEQ/L (98-107); CREATININE FOR GFR 1.02 MG/DL (0.70-1.30); GLOMERULAR FILTRATION RATE > 60.0 (>35); GLUCOSE, FASTING 104 MG/DL (70-100); POTASSIUM SERUM 3.4 MEQ/L (3.5-5.1); SODIUM LEVEL 138 MEQ/L (136-145); TROPONIN I 3.14 NG/ML (< 0.10)
[2019-11-25] MEDS: PIPERACILLIN/TAZOBACTAM SOD 3.375 GM in D5W MINI-BAG PLUS 50 ML IV SCH ×4 (03:41→20:01)
[2019-11-25] MEDS: POTASSIUM CHLORIDE 10 MEQ SR TABLET PO SCH ×2 (03:43→05:15)
[2019-11-25] MEDS: KETOROLAC 30 MG/ML 1ML VIAL IV PRN (04:01)
[2019-11-25] MEDS: LEVALBUTEROL 1.25 MG/0.5 ML CONCENTRATE NEB INH PRN (04:11)
[2019-11-25 04:59] LABS: BASO % 0.2 % (0.0-1.0); EOS # 0.2 10^3/uL (0.0-0.5); EOS % 2.8 % (0.0-3.0); HEMATOCRIT 34.5 % (42.0-52.0); HEMOGLOBIN 11.4 g/dl (13.5-17.5); LYMPH # 0.5 10^3/uL (1.5-5.0); LYMPH % 9.4 % (24.0-44.0); MEAN CORPUSCULAR HEMOGLOBIN 29.6 pg (27.0-33.0); MEAN CORPUSCULAR VOLUME 89.6 fl (80.0-96.0); MONO # 0.5 10^3/uL (0.0-0.8); NEUTROPHILS # 4.1 10^3/uL (1.5-8.5); NEUTROPHILS % 76.7 % (36.0-66.0); PLATELET COUNT, AUTOMATED 118 10^3/uL (150-450); RED BLOOD COUNT 3.85 10^6/uL (4.30-6.10); WHITE BLOOD COUNT 5.4 10^3/uL (4.0-10.0)
[2019-11-25] MEDS: AMIODARONE HCL 360 MG in IV 1 EA IV SCH ×2 (05:07→16:40)
[2019-11-25 05:28] LABS: ALBUMIN 2.1 GM/DL (3.2-5.2); ALT/SGPT 629 U/L (12-78); BILIRUBIN,TOTAL 2.1 MG/DL (0.2-1.0); BLOOD UREA NITROGEN 24 MG/DL (7-18); CALCIUM LEVEL 7.5 MG/DL (8.8-10.2); CARBON DIOXIDE LEVEL 23 MEQ/L (21-32); CHLORIDE LEVEL 106 MEQ/L (98-107); CREATININE FOR GFR 0.86 MG/DL (0.70-1.30); GLOMERULAR FILTRATION RATE > 60.0 (>35); GLUCOSE, FASTING 106 MG/DL (70-100); POTASSIUM SERUM 3.5 MEQ/L (3.5-5.1); SODIUM LEVEL 137 MEQ/L (136-145); TOTAL PROTEIN 5.2 GM/DL (6.4-8.2)
[2019-11-25] MEDS ORDERED: ALPRAZolam 0.25 MG TAB PO PRN (06:00)
[2019-11-25] MEDS: HEPARIN SOD (PORCINE) 5000UNITS/ML VIAL (J1644 PER 1000UNITS) SQ SCH ×3 (06:45→20:01)
[2019-11-25] MEDS: LEVALBUTEROL 1.25 MG/0.5 ML CONCENTRATE NEB INH SCH ×4 (07:53→20:40)
[2019-11-25] MEDS: FOLIC ACID 1 MG in NS 50 ML IV SCH (08:57)
[2019-11-25] MEDS: PANTOPRAZOLE 40MG VIAL (C9113 PER 1) IV SCH (08:58)
[2019-11-25] MEDS: VITAMIN D 1,000 INTERNATIONAL UNITS TABLET PO SCH (08:58)
[2019-11-25] MEDS: CYANOCOBALAMIN 500 MCG TAB PO SCH (08:58)
[2019-11-25] MEDS: PYRIDOXINE 50 MG TAB PO SCH (08:58)
[2019-11-25] MEDS: CARVedilol 3.125 MG TAB PO SCH ×2 (08:59→20:02)
[2019-11-25] MEDS: THIAMINE 200MG/2ML VIAL (J3411 PER 100MG) IV SCH (08:59)
[2019-11-25] MEDS: MULTIVITAMINS/MINERALS THERAP 1 TAB PO SCH (08:59)
[2019-11-25] MEDS ORDERED: POTASSIUM CHLORIDE 10 MEQ SR TABLET PO ONE (09:00)
--- NOTE | 2019-11-25 11:28 | IPNPDOC ---
Subjective Date Seen The patient was seen on 11/25/19. Subjective Chief Complaint/HPI It was noted that around 1050pm last night, pt was having frequent long runs of VT every 30 seconds with HR in the 130-160s sustained, asymptomatic per nursing note. Cardiology noted that there were PVCs which was concerning for SVT, and the night attending Dr. Xiong called Dr. Churchill and the patient was put on amiodarone steps 1-3. Pt was also being restarted on home beta ezequiel. It was noted that during these episode pt did not have any dyspnea, chest pain, or any discomfort. Pt this morning denies any chest pain, dyspnea, palpitation, ab dominal pain, nausea, vomiting, fever, or chills. Constitutional: Denies: Chills, Fever Pulmonary: Denies: Dyspnea Cardiovascular: Denies: Chest Pain, Palpitations Gastrointestinal: Denies: Nausea, Vomiting, Abdominal Pain Objective Physical Examination General Exam: Positive: Alert, Cooperative, No Acute Distress, Other (laying on bed with NC in place with food trays on table) Eye Exam: Positive: Conjunctiva & lids normal; Negative: Sclera icteric ENT Exam: Positive: Atraumatic, Mucous membr. moist/pink Neck Exam: Positive: Supple Chest Exam: Positive: Clear to auscultation, Normal air movement; Negative: Rales, Rhonchi, Wheezing Heart Exam: Positive: Rate Normal, Regular Rhythm, Normal S1, Normal S2; Negative: Murmurs Abdomen Exam: Positive: Normal bowel sounds, Soft, Other (right cholecystostomy tube, green-yellow bile with sluge in bag); Negative: Tenderness Extremity Exam: Negative: Cyanosis, Tenderness Neuro Exam: Positive: Normal Speech, Normal Tone Psych Exam: Positive: Mental status NL, Mood NL, Memory Intact Assessment /Plan Assessment Pt is a 89 yo with PMH of HTN and hyperlipidemia presented to to [facility] on 11/22/2019 due to generalized weakness that started in the morning and a fall d/t the weakness later develop fever dx with severe sepsis/septic shock with troponinemia, s/p central line placement and removal and percutaneous tube placement 1. Severe sepsis/septic shock likely 2/2 acalculous cholecystitis, improved. Tachycardic, fever, leukocytosis, tachypnea, and new-onset AMS shortly after admission; now only has fever. Pt MAP lowest at 54 on 11/22/2019 but BP improved after receiving IVF and did not require pressors. Resp neg, blood cx negX4 and urine cx neg. Lactic acidosis resolved. Procalcitonin pending. On Zosyn. Cont IV NS. Neuro checks. Zofran PRN. Pt is s/p percutaneous tube placement. 2. Acalculous cholecystitis. CT abd/pelvis showed distended gallbladder with inflammatory fat stranding and free fluid around the gallbladder indicating acalculous cholecystitis. Pt is s/p percutaneous tube placement, gallbladder fluid culture pending. Total percutaneous drainage output on 11/23=95ml. Per group discussion pt will be on low residue diet. Increase IV fluid rate to 90ml /hr as PO intake and urine output are mildly decreased. Surgery plan to clamp cholecystostomy tube Thursday 3.Troponinemia, improving. Cardiology following, etiology thought likely 2/2 sepsis. 324mg Aspirin upon admission. S/p heparin bolus and drip. Cont tele. Cont Zosyn. Pt s/p 1-3 steps amiodarone and IV metoprolol for Vtach vs SVT. Now on Carvedilol 3.125mg BID. 4. Transaminitis 2/2 shock liver vs acalculous cholecystitis. Sudden increase in LFT after onset of AMS; LFT trending down. Pt received heparin bolus then drip as well as antibiotics Zosyn and Vanco; now on Zosyn. Atorvastatin was initially started for LBBB, but will hold d/t transaminitis. Urine drug screen neg so far 5. Encephalopathy d/t sepsis vs TIA from insufficient blood supply 2/2 low MAP, resolved. Brief episodes of AMS with urinary incontinence. Ct head ordered in ER showed no acute abnormality. Low residue diet now. 6. Concussion 2/2 fall d/t generalized weakness. CT head showed no acute abnormality. Fall precaution. 7. Anxiety. Hx of anxiety has been on low dose alprazolam BID for 30 years. Will hold alprazolam and notryptline at this time. Alprazolam 0.25mg QD PRN anxiety 8. HTN. Hold home lisinopril for now d/t precaution for shock kidney. Pt was hypotensive with MAP 54, received fluid rescuscitation. BP currently stable. Cont vital signs. 9. Hematuria 2/2 malpositioned conde catheter. Gross hematuria, improving. CT abd/pelvis showed malpositioned conde catheter with balloon inflated in the pr ostate. S/p conde catheter removal. Continue to monitor urine, repeat UA 11/26/2019 10. Urinary retention 2/2 prostate inflammation 2/[address] abd/pelvis noted conde catheter malpositioned with the balloon inflated in the prostate gland. S/p conde catheter removal. It is noted pt has urinary retention since being in PCU with bladder scan>400ml. Straight cath now with bladder scan Q6H and strai ght cath PRN DVT prophylaxis: SCD and TEDS, heparin SC GI prophylaxis: Protonix Pt is full code. Lives with girlfriend Laura but she reported no health care proxy form was filled out. Two sons Yosi [phone] and Zeb [phone] DISPO: transfer to PCU, likely clamp cholecystostomy tube and discharge on Thursday. Urinary retention/hematuria 2/2 malpositioned conde catheter s/p removal; bladder scan with straight cath PRN Plan/VTE VTE Prophylaxis Ordered?: Yes Plan IVF: Increase Diet: Advance Activity: Advance Diagnostics: Repeat Labs in AM Anticipated Discharge: Home Disposition Likely clamp cholecystomy tube on Thursday and discharge on Thursday VS, I&O, 24H, [facility] Vital Signs/I&O Vital Signs Date Time Temp Pulse Resp B/P (MAP) Pulse Ox O2 Delivery O2 Flow Rate FiO2 11/25/19 08:59 78 141/66 11/25/19 06:00 97.8 96 Room Air 11/25/19 04:00 15 11/25/19 03:00 1.0 I&O- Last 24 Hours up to 6 AM 11/25/19 06:00 Intake Total 2874.933 ml Output Total 880 ml Balance 1994.933 ml Laboratory Data 24H LABS Laboratory Tests 2 11/24/19 13:00: 11/24/19 23:01: Anion Gap 8, Glomerular Filtration Rate > 60.0, Calcium Level 7.4L, Magnesium Level 2.0, Troponin I 3.14#*H 11/25/19 04:45: Anion Gap 8, Glomerular Filtration Rate > 60.0, Calcium Level 7.5L, Immature Granulocyte % (Auto) 0.9, Neutrophils (%) (Auto) 76.7H, Lymphocytes (%) (Auto) 9.4L, Monocytes (%) (Auto) 10.0H, Eosinophils (%) (Auto) 2.8, Basophils (%) (Auto) 0.2, Neutrophils # (Auto) 4.1, Lymphocytes # (Auto) 0.5L, Monocytes # (Auto) 0.5, Eosinophils # (Auto) 0.2, Basophils # (Auto) 0.0, Nucleated Red Blood Cells % (auto) 0.0, Total Bilirubin 2.1H, Aspartate Amino Transf (AST/SGOT) 196H, Alanine Aminotransferase (ALT/SGPT) 629H, Alkaline Phosphatase 399H, Total Protein 5.2L, Albumin 2.1L, Albumin/Globulin Ratio 0.7 CBC/BMP Laboratory Tests 11/24/19 23:01 11/25/19 04:45 Microbiology Microbiology 11/24/19 Gram Stain - Final, Resulted 11/24/19 Body Fluid Culture, Resulted Pending 11/23/19 Blood Culture - Preliminary, Resulted No Growth after 48 hours. All Specime... 11/23/19 Blood Culture - Preliminary, Resulted No Growth after 48 hours. All Specime... 11/23/19 Urine Culture - Final, Complete 11/22/19 Respiratory Virus Panel (PCR) (PRATIBHA) - Final, Complete 11/22/19 Blood Culture - Preliminary, Resulted No Growth after 72 hours. All specime... 11/22/19 Blood Culture - Preliminary, Resulted No Growth after 72 hours. All specime... JACY COHN DO Nov 25, 2019 11:28
--- NOTE | 2019-11-25 11:55 | IPN ---
DATE: 11/25/2019 SUBJECTIVE: Mr. Anglin is seen and examined at the bedside this morning. He is sitting up, eating breakfast and he said he feels well. He says his breathing is feeling better. He is not having any chest pain or shortness of breath. Nursing did report that he went into somewhat of an aberrant rhythm overnight where they suspected that he had several premature ventricular contractions (PVCs) which was concerning for supraventricular tachycardia (SVT). The night attending called Dr. Churchill and the patient was put on amiodarone steps 1-3. This morning he is finishing his step 3 of that regimen and also beta-ezequiel that he was on at home has been restarted. He tells me that during this episode he did not have any shortness of breath or chest pain, nor any discomfort. He is wondering when he can go home. Otherwise, no other complaints today. OBJECTIVE: His vitals are temperature 97.8, pulse of 78, respiratory rate of 15, blood pressure 141/66, and he is 96% on room air. Yesterday, he was net positive balance. His urine output was around 900 mL and his drain in his right lower abdomen put out 95 mL. Generally, he is sitting up in bed. He is calm, cooperative, no acute distress, appearing stated age. HEENT Exam: His extraocular movements are intact. His pupils are equally round and reactive to light. His mucous membranes are moist. Neck is supple with no thyromegaly. No lymphadenopathy. Chest is clear to auscultation bilaterally with no adventitious breath sounds appreciated. Cardiovascular: He is in normal sinus rhythm at this point in time, regular rate and rhythm. No murmurs, rubs, or gallops are appreciated. His peripheral pulses are intact and he has no jugular venous distention. Abdomen is soft and nontender to palpation in all four quadrants. Positive bowel sounds. He does have a right lateral cholecystostomy tube placed with dressing intact, which is clean, dry and intact. The tube is draining greenish liquid with some stones and sludge. He has no masses. No organomegaly. Extremities: He has no clubbing, cyanosis or edema. Skin: He has no new rashes. Warm and well perfused. Lymphatics: He has no enlarged lymph nodes in the neck or the groin. Psychiatric: He has normal mood and normal affect. He is awake, alert and oriented times three. Neurologic: Cranial nerves II-XII are intact with no focal deficits. Labs today, white blood cell count 5.4, hemoglobin 11.4 and hematocrit 34.5, with a platelet count of 118. His electrolytes, sodium 137, potassium 3.5. Chloride is 106. BUN is 24, creatinine is 0.86. Fasting glucose is 106. His liver enzymes have come down. AST has come down to 196. ALT has come down to 629. Alkaline phosphatase has come done to 399. His total bilirubin has also come down from 3.9 to 2.1. Microbiology: There has been no growth on his blood cultures, his urine culture and the gram stain of his fluid culture from his gallbladder as well. No new imaging done. ASSESSMENT: This is an 89-year-old man who came in with weakness, found to be septic and was febrile with questionable acalculous cholecystitis, now recovering with liver enzymes trending down and an episode of questionable SVT overnight. PLAN: At this point in time, he is finishing up his three steps of amiodarone. We have restarted his home dose of Coreg 3.125 mg twice a day. His heart rate is well controlled and his blood pressure is also well controlled. I do not think he needs to be on any maintenance amiodarone at this time. In addition, he will need most likely when his infection clears up to followup with cardiology and have a cath done and possibly a stress test. We can have him followup with Dr. Tompkins or Dr. Churchill in the office. On discharge, he will also need to have Plavix and a statin as well started. Otherwise, he appears to be doing well. He converted back to sinus rhythm. We will continue to monitor him closely and feel free to call us with any questions. LENNOX
[2019-11-25] MEDS: NS 1,000 ML IV SCH ×2 (12:30→23:24)
--- NOTE | 2019-11-25 13:50 | IPN ---
DATE: The patient overall is doing well. He is sitting, eating a regular diet and not complaining of any significant abdominal pain. He has his drain in place that was placed yesterday afternoon. Gram stain reveals no bacteria. On his physical exam, abdomen is soft, nontender and nondistended. Drainage is some mucus, a little bit of drainage from his gallbladder itself some dark bile. No purulent material was coming out. IMPRESSION/PLAN: The patient has a cholecystostomy tube in place. Once again, I am not convinced that this the source of his original sepsis/hypotensive issues was secondary to his gallbladder. I feel that the patient may have developed (secondary to hypotension). Acalculous cholecystitis is a possibility but now that he has a drain in place it is reasonable to keep it in place, and I would recommend keeping this to gravity for the weekend. We will see how he is doing on Thursday or Thursday. May have it clamped before he is able to be discharged. He is on a regular diet and tolerating it and thus, no further surgical intervention is necessary at this time.
--- NOTE | 2019-11-25 13:52 | IPN ---
DATE: 11/25/2019 The patient seems to be making some slow but progressive improvement. He has been afebrile all morning and his drain has been putting out more bilious drainage. There is still some flecks of what appears to be some gravel/sludge in there. His white count has normalized. His abdomen has been soft. His drain otherwise shows no bloody drainage and no other significant abnormality. IMPRESSION/PLAN: From a surgical standpoint, the patient has a cholecystostomy tube, it is reasonable to keep it unclamped throughout the weekend and we will see how he is doing on Thursday. If he is getting close to discharge, we will plan on clamping the tube prior to discharge and then when we see him in the office will get that tube out, but otherwise from a surgical standpoint no further intervention is necessary.
[2019-11-25] MEDS ORDERED: BLISTEX OINTMENT TOP PRN (16:45)
[2019-11-26] VITALS: BP 141/69
[2019-11-26] MEDS: PIPERACILLIN/TAZOBACTAM SOD 3.375 GM in D5W MINI-BAG PLUS 50 ML IV SCH (03:00)
[2019-11-26 04:00] VITALS: BP 155/81
[2019-11-26 06:21] LABS: BASO % 0.2 % (0.0-1.0); EOS # 0.1 10^3/uL (0.0-0.5); EOS % 2.6 % (0.0-3.0); HEMATOCRIT 29.4 % (42.0-52.0); HEMOGLOBIN 10.5 g/dl (13.5-17.5); LYMPH # 1.1 10^3/uL (1.5-5.0); LYMPH % 22.3 % (24.0-44.0); MEAN CORPUSCULAR HEMOGLOBIN 30.9 pg (27.0-33.0); MEAN CORPUSCULAR HGB CONC 35.7 g/dl (32.0-36.5); MEAN CORPUSCULAR VOLUME 86.5 fl (80.0-96.0); MONO # 0.6 10^3/uL (0.0-0.8); MONO % 12.2 % (0.0-5.0); NEUTROPHILS # 3.1 10^3/uL (1.5-8.5); NEUTROPHILS % 60.9 % (36.0-66.0); PLATELET COUNT, AUTOMATED 139 10^3/uL (150-450)
[2019-11-26] MEDS: HEPARIN SOD (PORCINE) 5000UNITS/ML VIAL (J1644 PER 1000UNITS) SQ SCH ×3 (06:38→20:08)
[2019-11-26 06:48] LABS: ALT/SGPT 423 U/L (12-78); BILIRUBIN,TOTAL 1.2 MG/DL (0.2-1.0); BLOOD UREA NITROGEN 18 MG/DL (7-18); CALCIUM LEVEL 7.5 MG/DL (8.8-10.2); CARBON DIOXIDE LEVEL 20 MEQ/L (21-32); CHLORIDE LEVEL 107 MEQ/L (98-107); CREATININE FOR GFR 0.73 MG/DL (0.70-1.30); GLOMERULAR FILTRATION RATE > 60.0 (>35); GLUCOSE, FASTING 97 MG/DL (70-100); POTASSIUM SERUM 3.6 MEQ/L (3.5-5.1); SODIUM LEVEL 135 MEQ/L (136-145)
[2019-11-26] MEDS: LEVALBUTEROL 1.25 MG/0.5 ML CONCENTRATE NEB INH SCH ×4 (07:54→20:00)
[2019-11-26 08:00] VITALS: BP 132/64
[2019-11-26] MEDS: PANTOPRAZOLE 40MG VIAL (C9113 PER 1) IV SCH (10:03)
[2019-11-26] MEDS: VITAMIN D 1,000 INTERNATIONAL UNITS TABLET PO SCH (10:04)
[2019-11-26] MEDS: TAMSULOSIN 0.4 MG CAP PO SCH (10:04)
[2019-11-26] MEDS: MULTIVITAMINS/MINERALS THERAP 1 TAB PO SCH (10:04)
[2019-11-26] MEDS: CYANOCOBALAMIN 500 MCG TAB PO SCH (10:04)
[2019-11-26] MEDS: CARVedilol 3.125 MG TAB PO SCH ×2 (10:05→20:07)
[2019-11-26] MEDS: PYRIDOXINE 50 MG TAB PO SCH (10:05)
[2019-11-26] MEDS: THIAMINE 100 MG TAB PO SCH (10:05)
[2019-11-26] MEDS: LevoFLOXacin IV 500 MG in IV 1 EA IV SCH (10:06)
[2019-11-26] MEDS: FOLIC ACID 1 MG in NS 50 ML IV SCH (10:08)
[2019-11-26 11:37] VITALS: BP 142/79
--- NOTE | 2019-11-26 12:44 | IPNPDOC ---
Subjective Date Seen The patient was seen on 11/26/19. Subjective Chief Complaint/HPI Patient examined at bedside. He denies any complaints except for fever, chills, nausea, vomiting, abdominal pain, chest pain, palpitation, or dyspnea. He did admit that he is unable to urinate and require assistance with urination, it was noted that pt was unable to urinate last night and require straight cath; he is unsure whether there is blood in his urine. Pt's cholecystostomy tube drainage grew Klebsiella General: Denies: Chills Constitutional: Denies: Chills, Fever Pulmonary: Denies: Dyspnea Cardiovascular: Denies: Chest Pain, Palpitations Gastrointestinal: Denies: Nausea, Vomiting, Abdominal Pain Genitourinary: Reports: Retention Objective Physical Examination General Exam: Positive: Alert, Cooperative, No Acute Distress Eye Exam: Positive: Conjunctiva & lids normal; Negative: Sclera icteric ENT Exam: Positive: Atraumatic, Mucous membr. moist/pink Neck Exam: Positive: Supple Chest Exam: Positive: Clear to auscultation, Normal air movement; Negative: Rales, Rhonchi, Wheezing Heart Exam: Positive: Bradycardic (mild), Regular Rhythm, Normal S1, Normal S2 Abdomen Exam: Positive: Normal bowel sounds, Soft, Other (Right cholecystomy tube drainage in place with green-yellow bile in bag); Negative: Tenderness Extremity Exam: Negative: Cyanosis Neuro Exam: Positive: Normal Speech, Normal Tone Psych Exam: Positive: Mental status NL, Anxiety (mildly anxious), Memory Intact Assessment /Plan Assessment Pt is a 89 yo with PMH of HTN and hyperlipidemia presented to to [facility] on 11/22/2019 due to generalized weakness that started in the morning and a fall d/t the weakness later develop fever dx with severe sepsis/septic shock with troponinemia, s/p central line placement and removal, s/p cholecystostomy tube placement 1. Severe sepsis/septic shock likely 2/2 acalculous cholecystitis, resolved. Tachycardic, fever, leukocytosis, tachypnea, and new-onset AMS shortly after admission, resolved. Pt MAP lowest at 54 on 11/22/2019 but BP improved after receiving IVF and did not require pressors. Resp neg, blood cx negX4 and urine cx neg. Lactic acidosis resolved. Procalcitonin pending. Switch abx to levofloxacin; cholecystostomy drainage cx pos for klebsiella. Cont IV NS. Zofran PRN. Pt is s/p cholecystomy tube placement 11/23/2019. 2. Acalculous cholecystitis. CT abd/pelvis showed distended gallbladder with inflammatory fat stranding and free fluid around the gallbladder indicating acalculous cholecystitis. Pt is s/p percutaneous tube placement, gallbladder fluid culture pos for klebsiella. Total percutaneous drainage output on 11/24=95ml. Per group discussion pt will be on low residue diet. IV NS. Surgery plan to clamp cholecystostomy tube Thursday. Repeat EKG tmrw as levofloxacin may cause QT prolongation 3.Troponinemia, improving. Cardiology following, etiology thought likely 2/2 sepsis. 324mg Aspirin upon admission. S/p heparin bolus and drip. Cont tele. Swich abx to levofloxacin. Pt s/p 1-3 steps amiodarone and IV metoprolol for Vtach vs SVT. Now on Carvedilol 3.125mg BID. Repeat EKG tmrw 4. Transaminitis 2/2 shock liver vs acalculous cholecystitis, improving. Sudden increase in LFT after onset of AMS; LFT trending down. Pt received heparin bolus then drip as well as antibiotics Zosyn and Vanco; now on levofloxacin. Atorvastatin was initially started for LBBB, but will hold d/t transaminitis. Urine drug screen neg so far 5. Encephalopathy d/t sepsis vs TIA from insufficient blood supply 2/2 low MAP, resolved. Brief episodes of AMS with urinary incontinence. Ct head ordered in ER showed no acute abnormality. Advance to low residue diet. 6. Concussion 2/2 fall d/t generalized weakness. CT head showed no acute abnormality. Neuro checks. PT/OT. Fall precaution. 7. Anxiety. Hx of anxiety has been on low dose alprazolam BID for 30 years. Will hold home alprazolam and notrypline at this time. Alprazolam 0.25mg QD PRN anxiety 8. HTN. Hold home lisinopril for now d/t precaution for shock kidney. Pt was hypotensive with MAP 54, received fluid rescuscitation. BP currently stable. Cont vital signs. 9. Hematuria 2/2 malpositioned conde catheter. Gross hematuria, improving. CT abd/pelvis showed malpositioned conde catheter with balloon inflated in the prostate. S/p conde catheter removal. Continue to monitor urine, repeat UA 11/26/2019 10. Urinary retention 2/2 prostate inflammation 2/[address] abd/pelvis noted conde catheter malpositioned with the balloon inflated in the prostate gland. S/p conde catheter removal. It is noted pt has urinary retention since being in PCU with bladder scan>400ml. Straight cath now with bladder scan Q6H and straight cath PRN DVT prophylaxis: SCD and TEDS, heparin SC GI prophylaxis: Protonix Pt is full code. Lives with girlfriend Laura but she reported no health care proxy form was filled out. Two sons Yosi [phone] and Zeb [phone] DISPO: transfer to PCU, likely clamp cholecystostomy tube and discharge on Thursday. Urinary retention/hematuria 2/2 malpositioned conde catheter s/p removal; bladder scan with straight cath PRN. Abx changed to levofloxacin, EKG tmrw morning Plan/VTE VTE Prophylaxis Ordered?: Yes Plan IVF: Increase, Decrease Diet: Continue Current Activity: Continue Current Diagnostics: Repeat Labs in AM, Repeat EKG Anticipated Discharge: Home VS, I&O, 24H, [facility] Vital Signs/I&O Vital Signs Date Time Temp Pulse Resp B/P (MAP) Pulse Ox O2 Delivery O2 Flow Rate FiO2 11/26/19 04:00 98.1 81 18 155/81 (105) 94 Room Air 11/25/19 03:00 1.0 I&O- Last 24 Hours up to 6 AM 11/26/19 06:00 Intake Total 3188 ml Output Total 1370 ml Balance 1818 ml Laboratory Data 24H LABS Laboratory Tests 2 11/26/19 05:28: Immature Granulocyte % (Auto) 1.8, Neutrophils (%) (Auto) 60.9, Lymphocytes (%) (Auto) 22.3L, Monocytes (%) (Auto) 12.2H, Eosinophils (%) (Auto) 2.6, Basophils (%) (Auto) 0.2, Neutrophils # (Auto) 3.1, Lymphocytes # (Auto) 1.1L, Monocytes # (Auto) 0.6, Eosinophils # (Auto) 0.1, Basophils # (Auto) 0.0, Nucleated Red Blood Cells % (auto) 0.0, Anion Gap 8, Glomerular Filtration Rate > 60.0, Calcium Level 7.5L, Total Bilirubin 1.2H, Aspartate Amino Transf (AST/SGOT) 107H, Alanine Aminotransferase (ALT/SGPT) 423H, Alkaline Phosphatase 406H, Total Protein 5.0L, Albumin 2.0L, Albumin/Globulin Ratio 0.7 CBC/BMP Laboratory Tests 11/26/19 05:28 Microbiology Microbiology 11/24/19 Gram Stain - Final, Complete 11/24/19 Body Fluid Culture - Final, Complete Klebsiella Pneumoniae 11/23/19 Blood Culture - Preliminary, Resulted No Growth after 48 hours. All Specime... 11/23/19 Blood Culture - Preliminary, Resulted No Growth after 48 hours. All Specime... 11/23/19 Urine Culture - Final, Complete 11/22/19 Respiratory Virus Panel (PCR) (PRATIBHA) - Final, Complete 11/22/19 Blood Culture - Preliminary, Resulted No Growth after 72 hours. All specime... 11/22/19 Blood Culture - Preliminary, Resulted No Growth after 72 hours. All specime... JACY COHN DO Nov 26, 2019 07:41
[2019-11-26] MEDS ORDERED: IBUPROFEN 600MG TAB PO PRN (12:45)
[2019-11-26] MEDS ORDERED: ONDANSETRON 4 MG TAB PO PRN (12:45)
[2019-11-26] MEDS: oxyCODONE 5MG TAB PO PRN ×2 (12:45→20:08)
--- NOTE | 2019-11-26 12:58 | ECGEPIP ---
[facility] Test Date: 2019-11-24 Pat Name: MILI TURNER Department: Room: [place] [address] Gender: Male Hand Pleater: ESPERANZA : 1930 Requested By: RANJIT Christensen Order Number: [id number] Reading MD: Ethan Flores Measurements Intervals [place] Rate: 147 P: 13 [place]: 64 QRS: 28 QRSD: 158 T: 204 QT: 327 QTc: 512 Interpretive Statements Mostly atrial flutter with 2:1 AV block; brief episode of sinus rhythm d demonstrated Left bundle branch block Rhythm change since prior tracing of 11/23/2019 Electronically Signed on 11-26-2019 12:58:44 EDT by Ethan Flores
[2019-11-26] MEDS: NS 1,000 ML IV SCH (15:58)
[2019-11-26 16:00] VITALS: BP 142/72
[2019-11-26 20:00] VITALS: BP 155/73
[2019-11-27] VITALS (8 sets, daily range): BP systolic 102–168; BP diastolic 58–87
[2019-11-27] MEDS: HEPARIN SOD (PORCINE) 5000UNITS/ML VIAL (J1644 PER 1000UNITS) SQ SCH ×3 (04:49→21:21)
[2019-11-27] MEDS: oxyCODONE 5MG TAB PO PRN (05:06)
[2019-11-27 06:26] LABS: ALBUMIN 2.1 GM/DL (3.2-5.2); ALT/SGPT 352 U/L (12-78); BLOOD UREA NITROGEN 13 MG/DL (7-18); CALCIUM LEVEL 7.9 MG/DL (8.8-10.2); CARBON DIOXIDE LEVEL 22 MEQ/L (21-32); CHLORIDE LEVEL 105 MEQ/L (98-107); GLOMERULAR FILTRATION RATE > 60.0 (>35); GLUCOSE, FASTING 92 MG/DL (70-100); MAGNESIUM LEVEL 1.9 MG/DL (1.8-2.4); POTASSIUM SERUM 3.5 MEQ/L (3.5-5.1); SODIUM LEVEL 135 MEQ/L (136-145); TOTAL PROTEIN 5.3 GM/DL (6.4-8.2)
[2019-11-27] MEDS: LEVALBUTEROL 1.25 MG/0.5 ML CONCENTRATE NEB INH SCH ×4 (07:46→19:31)
--- NOTE | 2019-11-27 08:55 | ECGEPIP ---
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
[2019-11-27] MEDS: PYRIDOXINE 50 MG TAB PO SCH (09:56)
[2019-11-27] MEDS: VITAMIN D 1,000 INTERNATIONAL UNITS TABLET PO SCH (09:56)
[2019-11-27] MEDS: TAMSULOSIN 0.4 MG CAP PO SCH (09:56)
[2019-11-27] MEDS: CYANOCOBALAMIN 500 MCG TAB PO SCH (09:56)
[2019-11-27] MEDS: MULTIVITAMINS/MINERALS THERAP 1 TAB PO SCH (09:57)
[2019-11-27] MEDS: FOLIC ACID 1 MG TAB PO SCH (09:57)
[2019-11-27] MEDS: CARVedilol 3.125 MG TAB PO SCH ×2 (09:57→21:21)
[2019-11-27] MEDS: THIAMINE 100 MG TAB PO SCH (09:57)
[2019-11-27] MEDS: PANTOPRAZOLE 40MG TAB (PROTONIX) PO SCH (09:57)
[2019-11-27] MEDS: LevoFLOXacin IV 500 MG in IV 1 EA IV SCH (09:58)
[2019-11-27] MEDS ORDERED: POTASSIUM CHLORIDE 10 MEQ SR TABLET PO ONE (11:00)
--- NOTE | 2019-11-27 14:13 | IPNPDOC ---
Date Seen The patient was seen on 11/27/19. Progress Note SUBJECTIVE: Patient reports feeling comfortable and denies any complaints including any p ain/discomfort, SOB, fever nor chills. Afebrile overnight. LFTs trending down. Na remain at 135. OBJECTIVE PHYSICAL EXAMINATION: VITAL SIGNS: Please see below. General: No acute distress, Alert Eyes: Normal sclera, EOMI HENT: Atraumatic Cardiovascular: Normal rate Pulmonary: mild b/l wheezing GI: Soft, nontender, nondistended, R. sided cholecystomy tube with yellow/bile drainage. Skin: Warm and dry Neuro: CN grossly intact. No focal deficits. Strengths equal b/l. Psych: oriented x 3 LABORATORY DATA, IMAGING STUDIES, MICROBIOLOGY: Please see below. DVT prophylaxis ordered?: HSQ and SCD ASSESSMENT AND PLAN: 1. Severe sepsis resolved - 2/2 acalculous cholecystitis s/p percutaneous cholecystostomy tube placement. - resp panel, blood and urine cultures negative. GB fluid culture + Klebsiella. - c/w Levaquin. Surgery following with plan for clamping of tube on thursday. - EKG re-assessed with Qtc 411. 2. Transaminitis - suspect 2/2 shock liver from septic shock. LFTs improving. -atorvastatin was started for LBBB but held now due to increase LFTs. 3. Troponinemia - suspect 2/2 sepsis and tachycardia/SVT. Did received ASA and had heparin drip. - Also completed amiodarone drip. Follow by cardiology. 4. Encephalopathy - From sepsis vs. TIA. Resolved. - CT head shows no acute findings. 5. HTN - Lisinopril home med held due to hypotension. Resume when BP persistently el evated. 6. Anxiety - On chronic alprazalam at home for 30 years. To give PRN at thsi time. 7. Hematuria - due to conde catheter malposition noted on CT abdomen. Balloon inflated in prostate now removed. 8. Urinary retention - 2/2 prostate enalrgement and trauma. - Straight cath PRN. denisse Deluca [phone] and Zeb [phone] Dispo: Likely d/c on thursday post clamping of cholecystostomy tube if cleared by surgery VS, I&O, 24H, [facility] Vital Signs/I&O Vital Signs Date Time Temp Pulse Resp B/P (MAP) Pulse Ox O2 Delivery O2 Flow Rate FiO2 6/21/20 11:52 98.4 83 18 138/79 (98) 97 Room Air 11/26/19 20:08 1.0 I&O- Last 24 Hours up to 6 AM 11/27/19 06:00 Intake Total 2155 ml Output Total 1575 ml Balance 580 ml Laboratory Data 24H LABS Laboratory Tests 2 11/26/19 16:29: Urine Color YELLOW, Urine Appearance CLEAR, Urine pH 5.0, Urine Specific Tanner 1.015, Urine Protein NEGATIVE, Urine Glucose (UA) NEGATIVE, Urine Ketones NEGATIVE, Urine Blood 2+H, Urine Nitrite NEGATIVE, Urine Bilirubin NEGATIVE, Urine Urobilinogen 4.0H, Urine Leukocyte Esterase NEGATIVE, Urine WBC (Auto) 2, Urine RBC (Auto) 12H, Urine Hyaline Casts (Auto) 0, Urine Bacteria (Auto) NEGATIVE, Urine Squamous Epithelial Cells 0, Urine Mucus (Auto) SMALL, Urine Sperm (Auto) 11/27/19 05:17: Anion Gap 8, Glomerular Filtration Rate > 60.0, Calcium Level 7.9L, Magnesium Level 1.9, Total Bilirubin 1.0, Aspartate Amino Transf (AST/SGOT) 107H, Alanine Aminotransferase (ALT/SGPT) 352H, Alkaline Phosphatase 387H, Total Protein 5.3L, Albumin 2.1L, Albumin/Globulin Ratio 0.7 CBC/BMP Laboratory Tests 11/27/19 05:17 Microbiology Microbiology 11/24/19 Gram Stain - Final, Complete 11/24/19 Body Fluid Culture - Final, Complete Klebsiella Pneumoniae 11/23/19 Blood Culture - Preliminary, Resulted No Growth after 72 hours. All specime... 11/23/19 Blood Culture - Preliminary, Resulted No Growth after 72 hours. All specime... 11/23/19 Urine Culture - Final, Complete 11/22/19 Respiratory Virus Panel (PCR) (PRATIBHA) - Final, Complete 11/22/19 Blood Culture - Final, Complete NO GROWTH AFTER 5 DAYS 11/22/19 Blood Culture - Final, Complete NO GROWTH AFTER 5 DAYS ART JOHNSTON MD Nov 27, 2019 14:13
[2019-11-27] MEDS ORDERED: MAG SULF 1GM/100ML (MAG RUN) 1 GM in IV 1 EA IV ONE (16:00)
[2019-11-28] VITALS: BP 173/82
[2019-11-28 04:00] VITALS: BP 145/75
[2019-11-28 05:45] LABS: ALBUMIN 2.2 GM/DL (3.2-5.2); ALT/SGPT 308 U/L (12-78); BILIRUBIN,TOTAL 1.4 MG/DL (0.2-1.0); BLOOD UREA NITROGEN 11 MG/DL (7-18); CARBON DIOXIDE LEVEL 24 MEQ/L (21-32); CHLORIDE LEVEL 104 MEQ/L (98-107); CREATININE FOR GFR 0.62 MG/DL (0.70-1.30); GLOMERULAR FILTRATION RATE > 60.0 (>35); GLUCOSE, FASTING 88 MG/DL (70-100); POTASSIUM SERUM 3.8 MEQ/L (3.5-5.1); SODIUM LEVEL 134 MEQ/L (136-145); TOTAL PROTEIN 5.4 GM/DL (6.4-8.2)
[2019-11-28 06:06] LABS: Benzodiazepines Negative (Cutoff=300)
[2019-11-28] MEDS: HEPARIN SOD (PORCINE) 5000UNITS/ML VIAL (J1644 PER 1000UNITS) SQ SCH ×2 (06:49→13:27)
[2019-11-28] MEDS: LEVALBUTEROL 1.25 MG/0.5 ML CONCENTRATE NEB INH SCH ×3 (07:33→15:27)
[2019-11-28 08:00] VITALS: BP 120/72
[2019-11-28] MEDS: PANTOPRAZOLE 40MG TAB (PROTONIX) PO SCH (08:49)
[2019-11-28] MEDS: LevoFLOXacin IV 500 MG in IV 1 EA IV SCH (08:49)
[2019-11-28 08:50] VITALS: BP 120/72
[2019-11-28] MEDS: CARVedilol 3.125 MG TAB PO SCH (08:50)
[2019-11-28] MEDS: VITAMIN D 1,000 INTERNATIONAL UNITS TABLET PO SCH (08:50)
[2019-11-28] MEDS: FOLIC ACID 1 MG TAB PO SCH (08:50)
[2019-11-28] MEDS: TAMSULOSIN 0.4 MG CAP PO SCH (08:50)
[2019-11-28] MEDS: MULTIVITAMINS/MINERALS THERAP 1 TAB PO SCH (08:50)
[2019-11-28] MEDS: CYANOCOBALAMIN 500 MCG TAB PO SCH (08:58)
[2019-11-28] MEDS: THIAMINE 100 MG TAB PO SCH (08:58)
[2019-11-28] MEDS: PYRIDOXINE 50 MG TAB PO SCH (08:59)
[2019-11-28] MEDS ORDERED: LEVO500T3 PO (11:24)
[2019-11-28] MEDS ORDERED: PANT40TA3 PO (11:26)
[2019-11-28] MEDS ORDERED: FLOM0.4C39 PO (11:26)
[2019-11-28] MEDS ORDERED: ONDA-83 PO (11:26)
--- NOTE | 2019-11-28 11:33 | IPN ---
DATE: 11/28/2019 The patient has had his cholecystostomy tube in place, doing well with this and did have Klebsiella in his gallbladder. Overall, we find no other source of infection. Thus, once he is medically stabilized, we may consider a laparoscopic cholecystectomy as an outpatient at some point in the future. However, at this point, given he is tolerating his diet and not having any abdominal pain and discomfort, his white count is normal, I would recommend clamping his cholecystostomy tube when he is discharged to home and have home health nurses visit him for drain care instructions, and then he can followup with me as an outpatient in 1 week and will remove the cholecystostomy tube. Will await his liver function tests to return to normal after developing probable shock liver. Once that has been normalized, then would be possible consideration of operative intervention for him in the future. If he develops any progression of his liver function tests elevation, he may need a magnetic resonance cholangiopancreatography (MRCP) to rule out any choledocholithiasis or an endoscopic retrograde cholangiopancreatography (ERCP) by GI.
[2019-11-28] MEDS ORDERED: CARV3.12 PO (11:37)
[2019-11-28] MEDS ORDERED: PLAV1TAB2 PO (11:37)
[2019-11-28 12:00] VITALS: BP 164/80
--- NOTE | 2019-11-28 13:43 | REP ---
IR cholecystostomy placement using CT guidance. IR moderate sedation. Clinical information: Acute cholecystitis. Presently not a surgical candidate, therefore referred by surgery. Physician: Dr. Canales. Procedure: The patient was advised of the benefits, risks and alternatives of the procedure and informed consent was obtained. The time-out was performed with verification of the patient's name, MRN, site of procedure and type of procedure to be performed. Moderate sedation was performed by the physician including the presence of an independent trained observer that assisted in monitoring the patient's level of consciousness and physiologic status. Following the administration of Versed and Fentanyl, the physician spent 45 minutes of continuous face to face time with the patient. The patient was placed in the supine position on the CT gantry and a scan was performed through the region of interest. This demonstrates a distended gallbladder. After marking the overlying skin, the patient was prepped and draped in the usual sterile fashion. The soft tissues overlying the gallbladder puncture site were anesthetized with lidocaine. Through this anesthetized region, an 18 gauge Chiba needle was advanced into the gallbladder under intermittent CT guidance. Brown fluid was aspirated. An Amplatz wire was advanced into the fluid collection over which a 10-Japanese APDL was advanced. Subsequent localized CT scanning was performed to confirm catheter location. The catheter was then locked, sutured in position and placed to gravity drainage. The patient tolerated the procedure well and was returned to PRU in stable condition. EBL: Less than 5 ml. Complications: None. Conclusion: 1. CT demonstrates distended gallbladder with pericholecystic fat stranding and fluid. 2. Successful CT guided cholecystostomy catheter placement. Catheter requires flushing with 10 ml sterile saline every day. Catheter may be removed at time of surgery otherwise patient to follow up in IR in 6 weeks for ongoing drain management. Thank you this referral. Electronically Signed by Naina Canales MD 11/28/2019 01:41 P
--- NOTE | 2019-11-28 17:36 | DS.PDOC ---
Discharge Summary General Date of Admission Nov 22, 2019 at 12:10 Date of Discharge 11/28/2019 Discharge Summary PROCEDURES PERFORMED DURING STAY: 1. Right IJ central line insertion and removal 2. Cholecystostomy tube placement s/p clamping ADMITTING DIAGNOSES: 1. Sepsis 2. Atypical chest pain with STEMI vs new onset LBBB 3. Transaminitis 2/2 shock liver from STEMI vs acetaminophen use, new 4. Encephalopathy d/t sepsis vs TIA from insufficient blood supply 2/2 STEMI, resolved 5. Concussion prior to admission 2/2 fall d/t generalized weakness 6. Anxiety 7. HTN 8. Dyspnea likely 2/2 sepsis vs STEMI DISCHARGE DIAGNOSES: Pt is a 89 yo with PMH of HTN and hyperlipidemia presented to to [facility] on 11/22/19 20 due to generalized weakness that started in the morning and a fall d/t the weakness later develop fever dx with severe sepsis/septic shock with troponinemia, s/p central line placement and removal, s/p cholecystostomy tube placement 1. Severe sepsis/septic shock likely 2/2 acalculous cholecystitis, resolved 2. Acalculous cholecystitis 3.Troponinemia, improving, series trending down 4. Transaminitis 2/2 shock liver vs acalculous cholecystitis, improving 5. Encephalopathy d/t sepsis vs TIA from insufficient blood supply 2/2 low MAP, resolved 6. Concussion 2/2 fall prior to admission d/t generalized weakness. CT head showed no acute abnormality 7. Anxiety 8. HTN 9. Hematuria 2/2 malpositioned conde catheter, resolved 10. Urinary retention 2/2 prostate inflammation 2/2 trauma, resolved 11. Colonic diverticulosis COMPLICATIONS/CHIEF COMPLAINT: Weakness. HISTORY OF PRESENT ILLNESS: Pt is a 89 yo male with PMH of HTN and hyperlipidemia presented to [facility] ER on 11/22/2019 in the morning due to generalized weakness and lightheadedness without vertigo which started since he woke up from sleep 11/22/2019. He reported that he also had an episode of sharp precordial chest pain lasting about 6 min in the morning which started when he is sitting still without radiation, aggravating factor, or alleviating factor. He reported he fell at home with on the right side and hit right occipital lobe region because of the weakness. He also said he started feeling very cold which started since he arrived to the hospital. He reported dyspnea without orthopnea but could not specify the onset of time. At the time of the admission, he denied any chest pain, palpitation, shoulder pain, nausea, vomiting, abdominal pain, constipation, diarrhea, blood in stool, or dysuria. Initially denied having fev er but later reported sometimes "he feels hot" HOSPITAL COURSE: Pt was admitted to the hospital with 324mg Aspirn, nitroglycein PRN, atorvastatin, and empiric abx coverage with IV Ceftriaxone. Pt had a changed of mental status started a few minutes after admission and a code purple was code. It was noted that pt's axillary temp was 103.6F compared to 98F forehead temp since he has been in the hospital. Pt was transferred to PCU. His EKG showed ST elevation in V2 and V3; heparin bolus with drip was started and cardiology was consulted with a cardiology consult ordered. Pt's abx was switched to IV Vanco and Zosyn. Per cardiology it was thought patient's presentation is not due to cardiac etiology but due to infectious etiology. Intensivenist was consulted, a central line was placed and pt received fluid resuscitation. GI was consulted for presumed diagnosis of ascending cholangitis, and CT abd/pelvis showed acalculous cholecystitis. Surgery was consulted and recommended percutaneous cholecystostomy tube. Pt's condition improved gradually and diet was gradually advanced. Pt appeared anxious/benzo withdrawl after cholecystostomy tube placement and a 0.25 alprazolam was given with symptoms resolved. Patient had conde catheter placed while in ICU, CT abd/pelvis showed catheter balloon was inflated into prostate. Pt had gross hematuria and was noted to have urinary retention with bladder scan >400ml, and a bladder scan Q8H with straight cath PRN was ordered. On 11/24/2019 night, pt was noted to have long runs of Vtach/SVT, and pt was started on 3 steps of amiodarone with 1 dose IV metoprolol tartate and PO carvedilol scheduled. On the day of discharge, pt reported no fever, chills, nausea, vomiting, abdominal pain, chest pain, palpitation, dyspnea, hematuria, or urinary retention. Pt has been tolerating low residue diet well. Confirmed with Dr. Fermin that patient is cleared from a surgery team's standpoint. Patient is determined ready to be discharged home with home health to do drainage teaching. DISCHARGE MEDICATIONS: Please see below. ALLERGIES: Please see below. PHYSICAL EXAMINATION ON DISCHARGE: VITAL SIGNS: Please see below. General Exam: Alert, Cooperative, No Acute Distress Eye Exam: Conjunctiva & lids normal. No sclera icteric ENT Exam: Atraumatic, Mucous membr. moist/pink Neck Exam: Supple Chest Exam: Clear to auscultation, Normal air movement. No rales, rhonchi, or wheezing Heart Exam: RRR, Normal S1, Normal S2 Abdomen Exam: Normal bowel sounds, Soft, Right cholecystomy tube drainage in place; neg tenderness Extremity Exam: no cyanosis Neuro Exam: Normal Speech, Normal Tone Psych Exam: Mental status wnl, memory intact LABORATORY DATA: Please see below. IMAGIN11/22/[address] showed vascular calcification, generalized volume loss with small vessel changes. No acute intracranial lesion seen. 11/22/2019 CXR showed no acute disease 11/22/2019 CXR showed somewhat elevated right hemidiaphragm. Vascular cephalization. 11/22/2019 CXR showed right IJ central line in place 11/22/2019 gallbladder US showed no sonographic evidence for ascending cholangitis 02/22/2020 abd/pelvis CT showed distended gallbladder with inflammatory fat stranding and a small amount of free fluid around the gallbladder; conde catheter malpositioned with the balloon inflated in the prostate gland. Colonic diverticulosis without diverticulitis. PROGNOSIS: [Fair] ACTIVITY: [As tolerated]. DIET: [Low residue diet] DISPOSITION: Home Health Service. DISCHARGE PLAN AND INSTRUCTIONS: 1. Discharge to home with home health service for cholecystostomy drainage teaching 2. Take medication as prescribed 3. Follow up with PCP, cardiology, and surgery in 1 week ITEMS TO FOLLOWUP ON ON OUTPATIENT: 1. Acalculous cholecystitis 2. Questionable past anteroseptal ID 3. Home chronic alprazolam chronic use reported to be scheduled BID per pt, consider switch to PRN use only DISCHARGE CONDITION: [Improved]. TIME SPENT ON DISCHARGE: [35] minutes. I have personally evaluated and examined the patient. Discussed with resident/student regarding plan of care and agree with the above assessment and plan. Vital Signs/I&Os Vital Signs Date Time Temp Pulse Resp B/P (MAP) Pulse Ox O2 Delivery O2 Flow Rate FiO2 11/28/19 12:00 97.9 78 18 164/80 (108) 94 Room Air 11/26/19 20:08 1.0 I&O- Last 24 Hours up to AM 11/28/19 06:00 Intake Total 740 ml Output Total 2170 ml Balance -1430 ml Laboratory Data Labs 24H Laboratory Tests 2 11/28/19 04:45: Anion Gap 6L, Glomerular Filtration Rate > 60.0, Calcium Level 8.0L, Total Bilirubin 1.4H, Aspartate Amino Transf (AST/SGOT) 111H, Alanine Aminotransferase (ALT/SGPT) 308H, Alkaline Phosphatase 342H, Total Protein 5.4L, Albumin 2.2L, Albumin/Globulin Ratio 0.7 CBC/BMP Laboratory Tests 11/28/19 04:45 Microbiology Microbiology 11/24/19 Gram Stain - Final, Complete 11/24/19 Body Fluid Culture - Final, Complete Klebsiella Pneumoniae 11/23/19 Blood Culture - Final, Complete NO GROWTH AFTER 5 DAYS 11/23/19 Blood Culture - Final, Complete NO GROWTH AFTER 5 DAYS 11/23/19 Urine Culture - Final, Complete 11/22/19 Respiratory Virus Panel (PCR) (PRATIBHA) - Final, Complete 11/22/19 Blood Culture - Final, Complete NO GROWTH AFTER 5 DAYS 11/22/19 Blood Culture - Final, Complete NO GROWTH AFTER 5 DAYS Discharge Medications Scheduled Atorvastatin Calcium (Atorvastatin Calcium) 40 Mg Tablet, 40 MG PO QHS, (Reported) Carvedilol (Carvedilol) 3.125 Mg Tablet, 3.125 MG PO BID Cholecalciferol (Vitamin D3) (Vitamin D3) 1,000 Unit Tablet, 1,000 UNITS PO DAILY, (Reported) Clopidogrel Bisulfate (Plavix) 75 Mg Tablet, 75 MG PO DAILY Cyanocobalamin (Vitamin B-12) (Vitamin B-12) 1,000 Mcg Tablet, 1,000 MCG PO DAILY, (Reported) Levofloxacin (Levofloxacin) 500 Mg Tablet, 500 MG PO DAILY Lisinopril (Lisinopril) 20 Mg Tablet, 20 MG PO DAILY, (Reported) Multivitamins (Thera M Plus Tablet) 1 Each Tablet, 1 TAB PO DAILY, (Reported) Nortriptyline HCl (Nortriptyline HCl) 50 Mg Capsule, 50 MG PO QHS, (Reported) Keyes-3/Dha/Epa/Fish Oil (Fish Oil 1,000 mg Softgel) 1 Each Capsule, 1,000 MG PO DAILY, (Reported) Pantoprazole Sodium (Pantoprazole Sodium) 40 Mg Tablet.dr, 40 MG PO DAILY Pyridoxine HCl (Vitamin B6) (Vitamin B-6) 50 Mg Tablet, 50 MG PO DAILY, (Reported) Tamsulosin HCl (Flomax) 0.4 Mg Capsule, 0.4 MG PO DAILY Scheduled PRN Alprazolam (Alprazolam) 0.5 Mg Tablet, 0.5 MG PO BID PRN for ANXIETY, (Reported) Ibuprofen (Ibuprofen) 200 Mg Capsule, 200 MG PO QID PRN for PAIN, (Reported) Ondansetron HCl (Ondansetron HCl) 4 Mg Tablet, 4 MG PO Q6HP PRN for NAUSEA OR VOMITING Allergies Coded Allergies: No Known Allergies (Unverified , 01/28/17) JACY COHN DO Nov 28, 2019 17:36 ART JOHNSTNO MD Nov 30, 2019 18:19
== END 2019-11-28 15:03 | disposition home health service (06) | DRG 871 ==
LOC: M ED 08:45 → EDBD 08:45 → M ED INP 12:10 → ENRESERV 12:15 → M MSPAV 13:35 → M PCU 14:49 → M ICU 17:50 → M PCU 11-25 14:49
PROVIDERS: ADMIT Internal Medicine; ATTEND Student in an Organized Health Care Education/Training Program
PROC: 02HV33Z Insertion of Infusion Device into Superior Vena Cava, Percutaneous Approach (ICD-10-PCS; 2019-11-22)
PROC: 0F9430Z Drainage of Gallbladder with Drainage Device, Percutaneous Approach (ICD-10-PCS; principal; 2019-11-23 14:30)
DX: A41.9 Sepsis, unspecified organism (principal); R65.21 Severe sepsis with septic shock; K72.00 Acute and subacute hepatic failure without coma; G93.41 Metabolic encephalopathy; I21.3 ST elevation (STEMI) myocardial infarction of unspecified site; K81.0 Acute cholecystitis; I44.7 Left bundle-branch block, unspecified; I10 Essential (primary) hypertension; F41.9 Anxiety disorder, unspecified; E78.5 Hyperlipidemia, unspecified; R31.0 Gross hematuria; K57.30 Diverticulosis of large intestine without perforation or abscess without bleeding; R33.9 Retention of urine, unspecified; Z79.899 Other long term (current) drug therapy; I25.10 Atherosclerotic heart disease of native coronary artery without angina pectoris; Z87.891 Personal history of nicotine dependence; S06.0X0A Concussion without loss of consciousness, initial encounter; W18.30XA Fall on same level, unspecified, initial encounter; Y92.9 Unspecified place or not applicable; T83.028A Displacement of other urinary catheter, initial encounter

== ENCOUNTER → 2019-11-30 | Outpatient (REF) | payer MEDICARE ==
[~2019-11-30] MED LIST changes: +ALPR0.5T3 PO; +ALPR2TAB3 PO; -ASPI81TA85 PO; +ASPI81TA86 PO; +ATOR40TA75 PO; +CARV3.12 PO; +CARV6.25 PO; +CYAN100049 PO; +D31000TA2 PO; +FLOM0.4C39 PO; +IBUP200C29 PO; +LEVO500T3 PO; +LISI-538 PO; +NORT50CA PO; +OMEG10002 PO; +OMEG12003 PO; +ONDA-83 PO; +PANT40TA29 PO; +PLAV1TAB2 PO; +VITA50TA7 PO; +VITMTA PO; +prevagen
[2019-11-30 18:00] LABS: ALBUMIN 2.6 GM/DL (3.2-5.2); ALT/SGPT 224 U/L (12-78); BLOOD UREA NITROGEN 13 MG/DL (7-18); CALCIUM LEVEL 8.4 MG/DL (8.8-10.2); CARBON DIOXIDE LEVEL 27 MEQ/L (21-32); CHLORIDE LEVEL 105 MEQ/L (98-107); CHOLESTEROL LEVEL 151 MG/DL (<200); CHOLESTEROL RISK RATIO 6.863 (<5); CREATININE FOR GFR 0.74 MG/DL (0.70-1.30); GLOMERULAR FILTRATION RATE > 60.0 (>35); GLUCOSE, FASTING 104 MG/DL (70-100); HDL CHOLESTEROL 22 MG/DL (>40); LDL CHOLESTEROL 99 MG/DL (<100); NON-HDL-C 129 MG/DL; POTASSIUM SERUM 4.2 MEQ/L (3.5-5.1); SODIUM LEVEL 136 MEQ/L (136-145); TOTAL PROTEIN 6.1 GM/DL (6.4-8.2); TRIGLYCERIDES LEVEL 152 MG/DL (<150)
[2019-11-30 18:03] LABS: BASO # 0.1 10^3/uL (0.0-0.2); BASO % 0.8 % (0.0-1.0); EOS # 0.2 10^3/uL (0.0-0.5); EOS % 2.5 % (0.0-3.0); HEMATOCRIT 31.8 % (42.0-52.0); HEMOGLOBIN 10.6 g/dl (13.5-17.5); LYMPH # 1.4 10^3/uL (1.5-5.0); LYMPH % 17.8 % (24.0-44.0); MEAN CORPUSCULAR HEMOGLOBIN 30.5 pg (27.0-33.0); MEAN CORPUSCULAR HGB CONC 33.3 g/dl (32.0-36.5); MEAN CORPUSCULAR VOLUME 91.4 fl (80.0-96.0); MONO # 0.5 10^3/uL (0.0-0.8); MONO % 5.9 % (0.0-5.0); NEUTROPHILS # 5.4 10^3/uL (1.5-8.5); NEUTROPHILS % 70.8 % (36.0-66.0); PLATELET COUNT, AUTOMATED 302 10^3/uL (150-450); RED BLOOD COUNT 3.48 10^6/uL (4.30-6.10); WHITE BLOOD COUNT 7.7 10^3/uL (4.0-10.0)
== END ==
LOC: M LAB REF 16:59
PROVIDERS: ATTEND Nurse Practitioner Family
DX: I10 Essential (primary) hypertension (principal); Z13.9 Encounter for screening, unspecified; E78.5 Hyperlipidemia, unspecified

== ENCOUNTER → 2019-12-19 | Outpatient (CLI) | payer MEDICARE, OTHER ==
[2019-12-19 10:14] LABS: ALBUMIN 3.7 GM/DL (3.2-5.2); ALT/SGPT 35 U/L (12-78); AMYLASE 31 U/L (25-115); BILIRUBIN,DIRECT 0.3 MG/DL (0.0-0.2); BILIRUBIN,TOTAL 0.9 MG/DL (0.2-1.0); BLOOD UREA NITROGEN 11 MG/DL (7-18); CALCIUM LEVEL 9.2 MG/DL (8.8-10.2); CARBON DIOXIDE LEVEL 26 MEQ/L (21-32); CHLORIDE LEVEL 105 MEQ/L (98-107); CREATININE FOR GFR 0.95 MG/DL (0.70-1.30); GLOMERULAR FILTRATION RATE > 60.0 (>35); GLUCOSE, FASTING 87 MG/DL (70-100); LIPASE 73 U/L (73-393); POTASSIUM SERUM 3.7 MEQ/L (3.5-5.1); SODIUM LEVEL 138 MEQ/L (136-145); TOTAL PROTEIN 7.2 GM/DL (6.4-8.2)
== END ==
LOC: M LAB 09:01
PROVIDERS: ATTEND Nurse Practitioner
DX: K81.9 Cholecystitis, unspecified (principal)

== ENCOUNTER → 2019-12-20 | Outpatient (POV) | payer MEDICARE ==
[~2019-12-20] MED LIST changes: +ASPI81TA85 PO; -ASPI81TA86 PO; -D31000TA2 PO; -PANT40TA29 PO; +PANT40TA3 PO; +VITAD1000T PO
--- NOTE | 2019-12-22 11:31 | IRPN ---
[facility] IR Progress Note IR Progress Note DATE: Dec 20, 2019 Patient agreed to this telephone consultation. Duration of call was 5 minutes. FOLLOW-UP: Status post acute cholecystitis treatment with IR cholecystostomy catheter placement. Patient denies abdominal pain, nausea or vomiting. Patient states appetite is good. No current plans for gallbladder surgery. Drain was removed by surgery. IMPRESSION: Patient doing well status post nonoperative IR management for acute cholecystitis. No further follow-up scheduled by IR unless initiated by patient and or referring provider. Thank you for this referral CC Dr. Fermin Allergies Coded Allergies: No Known Allergies (Unverified , 01/28/17) ADELINA ARMIJO MD Dec 22, 2019 11:31
== END ==
LOC: M TMIRPOV 09:06
PROVIDERS: ATTEND Radiology Diagnostic Radiology
DX: Z48.815 Encounter for surgical aftercare following surgery on the digestive system (principal)

== ENCOUNTER → 2019-12-26 | Outpatient (REF) | payer MEDICARE ==
[~2019-12-26] MED LIST changes: -ASPI81TA85 PO; +ASPI81TA86 PO; +D31000TA2 PO; +PANT40TA29 PO; -PANT40TA3 PO; -VITAD1000T PO
[2019-12-26 18:52] LABS: ALBUMIN 3.8 GM/DL (3.2-5.2); ALT/SGPT 29 U/L (12-78); BASO # 0.1 10^3/uL (0.0-0.2); BASO % 1.4 % (0.0-1.0); BILIRUBIN,TOTAL 0.7 MG/DL (0.2-1.0); BLOOD UREA NITROGEN 11 MG/DL (7-18); CALCIUM LEVEL 9.6 MG/DL (8.8-10.2); CARBON DIOXIDE LEVEL 28 MEQ/L (21-32); CHLORIDE LEVEL 106 MEQ/L (98-107); CREATININE FOR GFR 0.93 MG/DL (0.70-1.30); EOS # 0.1 10^3/uL (0.0-0.5); EOS % 1.9 % (0.0-3.0); GLOMERULAR FILTRATION RATE > 60.0 (>35); GLUCOSE, FASTING 101 MG/DL (70-100); HEMATOCRIT 42.6 % (42.0-52.0); HEMOGLOBIN 13.8 g/dl (13.5-17.5); LYMPH # 1.7 10^3/uL (1.5-5.0); LYMPH % 29.5 % (24.0-44.0); MEAN CORPUSCULAR HEMOGLOBIN 30.5 pg (27.0-33.0); MEAN CORPUSCULAR HGB CONC 32.4 g/dl (32.0-36.5); MEAN CORPUSCULAR VOLUME 94.2 fl (80.0-96.0); MONO # 0.5 10^3/uL (0.0-0.8); MONO % 8.3 % (0.0-5.0); NEUTROPHILS # 3.4 10^3/uL (1.5-8.5); NEUTROPHILS % 58.6 % (36.0-66.0); PLATELET COUNT, AUTOMATED 178 10^3/uL (150-450); POTASSIUM SERUM 3.9 MEQ/L (3.5-5.1); RED BLOOD COUNT 4.52 10^6/uL (4.30-6.10); SODIUM LEVEL 141 MEQ/L (136-145); TOTAL PROTEIN 7.9 GM/DL (6.4-8.2); WHITE BLOOD COUNT 5.9 10^3/uL (4.0-10.0)
== END ==
LOC: M LAB REF 17:55
PROVIDERS: ATTEND Nurse Practitioner Family
DX: D64.9 Anemia, unspecified (principal)

== ENCOUNTER 2020-01-20 09:37 | Emergency (ER) | payer MEDICARE, OTHER ==
[2020-01-20] MEDS ORDERED: FUROSEMIDE 40MG/4ML VIAL (J1940) ONE (12:37)
[2020-01-20] MEDS ORDERED: FUROSEMIDE 40MG/4ML VIAL (J1940) As Ordered ONE (12:37)
--- NOTE | 2020-02-22 14:21 | ECGEPIP ---
ECTOPIC ATRIAL TACHYCARDIA POSSIBLE LEFT ATRIAL ENLARGEMENT LEFT BUNDLE BRANCH BLOCK ABNORMAL ECG SEE SCANNED DOWNTIME REPORT MTDD
[2020-03-05 11:14] LABS: BASO # 0.1 10^3/uL (0.0-0.2); BASO % 1.1 % (0.0-1.0); EOS # 0.1 10^3/uL (0.0-0.5); EOS % 1.7 % (0.0-3.0); HEMATOCRIT 41.9 % (42.0-52.0); HEMOGLOBIN 13.7 g/dl (13.5-17.5); LYMPH # 1.2 10^3/uL (1.5-5.0); LYMPH % 18.8 % (24.0-44.0); MEAN CORPUSCULAR HEMOGLOBIN 30.1 pg (27.0-33.0); MEAN CORPUSCULAR HGB CONC 32.7 g/dl (32.0-36.5); MEAN CORPUSCULAR VOLUME 92.1 fl (80.0-96.0); MONO # 0.5 10^3/uL (0.0-0.8); MONO % 8.1 % (0.0-5.0); NEUTROPHILS # 4.5 10^3/uL (1.5-8.5); NEUTROPHILS % 70.1 % (36.0-66.0); PLATELET COUNT, AUTOMATED 184 10^3/uL (150-450); RED BLOOD COUNT 4.55 10^6/uL (4.30-6.10); WHITE BLOOD COUNT 6.5 10^3/uL (4.0-10.0)
== END 2020-01-20 15:56 | disposition home or self-care (01) ==
LOC: M ED 09:37
DX: I11.0 Hypertensive heart disease with heart failure (principal); E78.5 Hyperlipidemia, unspecified; R91.8 Other nonspecific abnormal finding of lung field; Z79.51 Long term (current) use of inhaled steroids; Z79.899 Other long term (current) drug therapy
CPT/HCPCS: 71046; 80048; 82550; 82553; 83880; 84484; 85025; 93005; 96374; 99284; J1940

== ENCOUNTER → 2020-02-24 | Outpatient (CLI) | payer MEDICARE, OTHER ==
[2020-02-24 13:11] LABS: BLOOD UREA NITROGEN 17 MG/DL (7-18); CARBON DIOXIDE LEVEL 25 MEQ/L (21-32); CHLORIDE LEVEL 111 MEQ/L (98-107); CREATININE FOR GFR 1.16 MG/DL (0.70-1.30); GLOMERULAR FILTRATION RATE > 60.0 (>35); GLUCOSE, FASTING 125 MG/DL (70-100); POTASSIUM SERUM 4.2 MEQ/L (3.5-5.1); SODIUM LEVEL 143 MEQ/L (136-145)
== END ==
LOC: M WUC 09:24
PROVIDERS: ATTEND Internal Medicine
DX: I50.22 Chronic systolic (congestive) heart failure (principal)